=== PATIENT | male | born 1945 | race Caucasian/White ===

== ENCOUNTER → 2019-06-15 | Outpatient (CLI) | payer MEDICARE, OTHER, SELFPAY | PROVIDERS: Family Provider Physician Assistant Medical; Visit Provider Internal Medicine Hematology & Oncology | DX: C61 Malignant neoplasm of prostate (principal); Z79.818 Long term (current) use of other agents affecting estrogen receptors and estrogen levels; Z79.899 Other long term (current) drug therapy | CPT/HCPCS: 96372; 96402; 99214; J0897; J9202 ==

== ENCOUNTER 2019-09-23 14:20 | Outpatient (CLI) | payer MEDICARE, OTHER, SELFPAY ==
[2019-09-23] MEDS: lidocaine 1% INJ 20 mL INJECTION (16:00)
--- NOTE | 2019-09-23 16:05 | ONC FU_ITS ---
Dr. Corcoran follow up note Patient: Davey Vanegas Unit #: [id number]: 1945 Dicatated By: Brandy Corcoran M.D.Date of Visit:Sep 23, 2019 Onc Med Follow-up/Prog Note History of Present Illness: Mr. Davey Vanegas, 73 -year-old gentleman with history of prostate cancer diagnosed in September 2011 at that time his PSA level 7.5, and a biopsy showed 11/12 positive, Osito 4+5, 4+3, 3+ 4-marcela 3+3, all large volume CT scan of abdomen pelvis and a bone scan done at that time were negative for metastatic disease patient was started on LHRH agonist plus radiation therapy which he completed in March 2012. With that his PSA improved and become undetectable. Thereafter, he did very well until in August 2015 on his routine/follow-up lab showed PSA increased to 0.24, and gone up to 3.2 in February 2016. And further follow-up showed steady increase in PSA level for that he underwent TRUSP/biopsy in February 2016 which showed no obvious residual disease in the prostate and follow-up CT scan of abdomen pelvis showed no evidence of metastatic disease. At that time it was decided to continue to monitor with PSA level and on 01/29/2017 his PSA gone up to 28.3 from 20.9 earlier. Mr Vanegas's PSA in May 2017 = 36.4; June 2017 = 38.5 and on 08/26/2017 it was 40. He did have restaging imaging with a CT scan of abdomen pelvis done on 08/21/2017. The CT showed interval slight enlargement right inguinal and retroperitoneal lymph nodes. Bone scan done on 08/21/2017 showed new foci of abnormal bone scan activity of sternal body and left eighth rib. treatment options were discussed with him and Mr Hiren have opted to treat with Zoladex every 3 months along with Xgeva for bone mets and Casodex daily, Casodex was later discontinued because of severe hot flashes patient did develop back pain for which he went to [place] [facility] where his pain was diagnosed to be due to neuropathy and treated with a nerve ablation. tolerating Zoladex/Xgeva well Follow-up CT scan of abdomen pelvis and bone scan done on 06/11/2019 showed decreased previous retroperitoneal and right inguinal lymph nodes no enlarged lymph nodes on current exam. Suspicious for progressive blastic bony metastatic disease involving T12 vertebral body and right femoral head since 08/21/2017 but bone scan done on same day showed no evidence of disease progression, the minimal residual focus of increased activity involving the mid sternal body slightly to the left of midline, is considerably decreased from 08/21/2017 and similar to 1 done in 09/08/2018. No other area abnormality seen. On 06/11/2019 His PSA is 0.16 Came for follow-up, denies any specific complaints, no fever no chills no nausea or vomiting no diarrhea constipation, no new bony pains. No dysuria or hematochezia occasionally hot flashes otherwise tolerating Zoladex/Xgeva every 3 months, well Medications: Acetaminophen 2 Tablet (of 325 mg) Oral PRN, AmLODIPine Besylate 1 (10 mg) Tablet Oral daily, Aspirin Adult 1 Tablet (of 325 mg) Oral daily, Atenolol 1 (25 mg) Tablet Oral daily, Equate Vision Formula Vitamin 1 Tablet daily, Geritol 1 Capsule daily, GlipiZIDE 1 (10 mg) Tablet Oral b.i.d., Imodium A-D 1 Tablet (of 2 mg) Oral daily PRN, Losartan Potassium-HCTZ 1 (100-25 mg) Tablet Oral daily, Lovastatin 1 (40 mg) Tablet Oral daily, Metformin (500 mg) Tablet Oral Take as Directed, Metoprolol Tartrate 1 (100 mg) Tablet Oral daily, Omeprazole 1 Tablet (of 40 mg) Oral daily, Pepcid 1 Tablet (of 20 mg) Oral daily, Tamsulosin HCl 1 (0.4 mg) Capsule Oral b.i.d., twinlab super enzyme caps 1 Tablet daily PRN, Vitamin C 1 (1000 mg) Tablet Oral daily Allergies: Cipro Review of Systems: Review of Systems is not available for this patient. Vital Signs: Performed on Sep 23, 2019 15:42 Height - 72.00 in Weight - 210.8 lbs (LOW) BSA - 2.18 sq.m BMI - 28.59 Temperature - 97.9 F (LOW) Pulse - 64 /min Respiration - 18 /min BP - 156/67 mm(hg) (HIGH) O2 Sat - 96 % Pain - 0 Performance Status: 0 - Fully active, able to carry on all predisease activities without restrictions. (ECOG) Physical Examination: ENMT - Sinuses are nontender. No oral exudates, ulcers, masses, thrush or mucositis. Oropharynx clear. Tongue normal, Respiratory - Lungs are clear to auscultation , heart ,regular rate and rhythm, Extremities - no edema. Lab/Imaging: Test performed on Jun 11, 2019 09:45 BUN 17 mg/dL Creatinine 0.7 mg/dL Cr Clearance (Est) 127.0500 mL/min PSA 0.16 ng/mL Impression: History of prostate cancer High risk/high-volume stage IIB (T1c N0 M0) diagnosed in 2011 status post concurrent LHRH agonist (Zoladex ) plus radiation therapy followed by LHRH agonist for year. With excellent response, confirmed with undetectable PSA. Now steady increase in PSA level since August 2015, prostate biopsy done in February [address] scan of abdomen pelvis all were negative for recurrence of disease. Last PSA in April 2017 was 28.3. PSA checked on 06/13/2017 is 36.40 and testosterone level to 298.[address] scan of abdomen pelvis done on 08/21/2017 showed interval slight enlargement right inguinal and retroperitoneal lymph nodes. Bone scan done on 08/21/2017 showed new foci of abnormal bone scan activity of sternal body and left eighth rib; no evidence of rib lesion on the rib radiographs. PSA checked on 08/21/2017 was 37.10. discussed with patient his CT scan of abdomen, pelvis and bone scan findings and his lab workup. The labs showed CBC within normal limits CMP within normal limits and PSA elevated at 37.10 but stable since 06/13/2017. with stable disease/mild progression as per CT scan and bone scan. Patient opted for treatment. recommended Zoladex 10.8 mg subcutaneous every 3 months and xgeva 120 mg every 3 months along with bicalutamide 50 mg daily. Casodex discontinued on 06/09/2018 Plan: Discussed with patient regarding his labs PSA 0.10 compared to 0.16 on 06/11/2019. Clinically, patient is doing well with no signs symptoms suggestive of recurrence of disease. Tolerating Xgeva/Zoladex well. We'll proceed with next 3 monthly dose of Zoladex and Xgeva today and then he will return to clinic in 3 months with PSA and CMP and with follow-up CT PET scan to assess disease status and response to the treatment. Signed By: Brandy Corcoran M.D. <<Signature on File>>
[2019-09-23] MEDS: goserelin acetate 10.8 mg Implant IM (16:14)
[2019-09-23] MEDS: denosumab 120 mg SDV SUBCUT (16:15)
== END 2019-09-23 14:21 | disposition home or self-care (01) ==
LOC: ONCMED 14:21
PROVIDERS: Family Provider Physician Assistant Medical; PCP Physician Assistant Medical; Visit Provider Internal Medicine Hematology & Oncology
DX: C61 Malignant neoplasm of prostate (principal); C79.51 Secondary malignant neoplasm of bone; N52.9 Male erectile dysfunction, unspecified; Z79.818 Long term (current) use of other agents affecting estrogen receptors and estrogen levels; Z79.899 Other long term (current) drug therapy; Z92.3 Personal history of irradiation; Z92.21 Personal history of antineoplastic chemotherapy
CPT/HCPCS: 84153; 96372; 96402; G0463; J0897; J2001; J9202

== ENCOUNTER 2019-12-30 14:24 | Outpatient (CLI) | payer MEDICARE, OTHER, SELFPAY ==
[2019-12-30 16:20] LABS: Prostate Specific Antigen 0.073 ng/mL (0-4)
[2019-12-30 16:34] LABS: Alanine Aminotransferase 25 U/L (0-41); Albumin Level 4.3 g/dL (3.5-5.2); Alkaline Phosphatase 83 IU/L (40-130); Anion Gap 18.9 (5-19); Aspartate Amino Transferase 19 U/L (0-40); Blood Urea Nitrogen 15 mg/dL (8-23); Calcium 9.4 mg/dL (8.5-10.5); Carbon Dioxide 23 mmol/L (22-29); Chloride 99 mmol/L (98-107); Globulin 2.5 g/dL (1.3-4.6); Glucose 280 mg/dL (65-115); Osmolality Calculated 290 mOsm/kg (285-295); Potassium 3.9 mmol/L (3.5-5.1); Sodium 137 mmol/L (136-145); Total Bilirubin 0.5 mg/dL (0.15-1.2); Total Protein 6.8 g/dL (6.6-8.7)
[2019-12-30] MEDS: lidocaine 1% INJ 20 mL INJECTION (16:53)
[2019-12-30] MEDS: denosumab 120 mg SDV SUBCUT (17:01)
[2019-12-30] MEDS: goserelin acetate 10.8 mg Implant IM (17:04)
--- NOTE | 2019-12-30 17:23 | ONC FU_ITS ---
Dr. Corcoran follow up note Patient: Davey Vanegas Unit #: [id number]: [id number] Dicatated By: Brandy Corcoran M.D.Date of Visit:Dec 30, 2019 Onc Med Follow-up/Prog Note History of Present Illness: Mr. Davey Vanegas, 74 -year-old gentleman with history of prostate cancer diagnosed in September 2011 at that time his PSA level 7.5, and a biopsy showed 11/12 positive, Osito 4+5, 4+3, 3+ 4-marcela 3+3, all large volume CT scan of abdomen pelvis and a bone scan done at that time were negative for metastatic disease patient was started on LHRH agonist plus radiation therapy which he completed in March 2012. With that his PSA improved and become undetectable. Thereafter, he did very well until in August 2015 on his routine/follow-up lab showed PSA increased to 0.24, and gone up to 3.2 in February 2016. And further follow-up showed steady increase in PSA level for that he underwent TRUSP/biopsy in February 2016 which showed no obvious residual disease in the prostate and follow-up CT scan of abdomen pelvis showed no evidence of metastatic disease. At that time it was decided to continue to monitor with PSA level and on 01/29/2017 his PSA gone up to 28.3 from 20.9 earlier. Mr Vanegas's PSA in May 2017 = 36.4; June 2017 = 38.5 and on 08/26/2017 it was 40. He did have restaging imaging with a CT scan of abdomen pelvis done on 08/21/2017. The CT showed interval slight enlargement right inguinal and retroperitoneal lymph nodes. Bone scan done on 08/21/2017 showed new foci of abnormal bone scan activity of sternal body and left eighth rib. treatment options were discussed with him and Mr Hiren have opted to treat with Zoladex every 3 months along with Xgeva for bone mets and Casodex daily, Casodex was later discontinued because of severe hot flashes patient did develop back pain for which he went to [place] [facility] where his pain was diagnosed to be due to neuropathy and treated with a nerve ablation. tolerating Zoladex/Xgeva well Follow-up CT scan of abdomen pelvis and bone scan done on 06/11/2019 showed decreased previous retroperitoneal and right inguinal lymph nodes no enlarged lymph nodes on current exam. Suspicious for progressive blastic bony metastatic disease involving T12 vertebral body and right femoral head since 08/21/2017 but bone scan done on same day showed no evidence of disease progression, the minimal residual focus of increased activity involving the mid sternal body slightly to the left of midline, is considerably decreased from 08/21/2017 and similar to 1 done in 09/08/2018. No other area abnormality seen. On 06/11/2019 His PSA is 0.16 oFollow-up CT PET scan done on December 19, 2019 showed FDG negative dense sclerotic osseous lesion in T12 vertebral body. Other lesions in the sternum, T8-9, right iliac, left iliac are FDG negative to. No evidence of pelvic lymphadenopathy. Came for follow-up, denies any specific complaints, no fever chills, no nausea or vomiting, no diarrhea or constipation, appetite is good, tolerating 3 monthly Zoladex and Xgeva well but with expected side effects like off and on hot flashes. Medications: Acetaminophen 2 Tablet (of 325 mg) Oral PRN, AmLODIPine Besylate 1 (10 mg) Tablet Oral daily, Aspirin Adult 1 Tablet (of 325 mg) Oral daily, Atenolol 1 (25 mg) Tablet Oral daily, Equate Vision Formula Vitamin 1 Tablet daily, Geritol 1 Capsule daily, GlipiZIDE 1 (10 mg) Tablet Oral b.i.d., Imodium A-D 1 Tablet (of 2 mg) Oral daily PRN, Losartan Potassium-HCTZ 1 (100-25 mg) Tablet Oral daily, Lovastatin 1 (40 mg) Tablet Oral daily, Metformin (500 mg) Tablet Oral Take as Directed, Metoprolol Tartrate 1 (100 mg) Tablet Oral daily, Omeprazole 1 Tablet (of 40 mg) Oral daily, Pepcid 1 Tablet (of 20 mg) Oral daily, Tamsulosin HCl 1 (0.4 mg) Capsule Oral b.i.d., twinlab super enzyme caps 1 Tablet daily PRN, Vitamin C 1 (1000 mg) Tablet Oral daily Allergies: Cipro Review of Systems: Review of Systems is not available for this patient. Vital Signs: Performed on Dec 30, 2019 16:29 Height - 72.00 in Weight - 209.6 lbs (LOW) BSA - 2.17 sq.m BMI - 28.43 Temperature - 97.1 F (LOW) Pulse - 71 /min Respiration - 19 /min BP - 155/68 mm(hg) (HIGH) O2 Sat - 95 % (LOW) Pain - 0 Performance Status: 0 - Fully active, able to carry on all predisease activities without restrictions. (ECOG) Physical Examination: ENMT - No mouth sores, no thrush, no jaundice, Respiratory - Lungs are clear, Cardiovascular - Regular rate and rhythm of heart, Abdomen - Soft, bowel sounds present, Extremities - No visible edema. Lab/Imaging: Test performed on Sep 23, 2019 14:38 PSA 0.10 ng/mL Impression: History of prostate cancer High risk/high-volume stage IIB (T1c N0 M0) diagnosed in 2011 status post concurrent LHRH agonist (Zoladex ) plus radiation therapy followed by LHRH agonist for year. With excellent response, confirmed with undetectable PSA. Now steady increase in PSA level since August 2015, prostate biopsy done in February [address] scan of abdomen pelvis all were negative for recurrence of disease. Last PSA in April 2017 was 28.3. PSA checked on 06/13/2017 is 36.40 and testosterone level to 298.[address] scan of abdomen pelvis done on 08/21/2017 showed interval slight enlargement right inguinal and retroperitoneal lymph nodes. Bone scan done on 08/21/2017 showed new foci of abnormal bone scan activity of sternal body and left eighth rib; no evidence of rib lesion on the rib radiographs. PSA checked on 08/21/2017 was 37.10. discussed with patient his CT scan of abdomen, pelvis and bone scan findings and his lab workup. The labs showed CBC within normal limits CMP within normal limits and PSA elevated at 37.10 but stable since 06/13/2017. with stable disease/mild progression as per CT scan and bone scan. Patient opted for treatment. recommended Zoladex 10.8 mg subcutaneous every 3 months and xgeva 120 mg every 3 months along with bicalutamide 50 mg daily. Casodex discontinued on 06/09/2018 Plan: Discussed with patient regarding his labs PSA 0.073, CT PET scan done on December 19, 2019 shows no sign of active disease FDG negative osseous metastatic disease and no evidence of pelvic lymphadenopathy. Clinically, patient doing well with no signs symptoms suggestive of disease progression his follow-up labs shows PSA sub-0 and stable and follow-up CT PET scan shows no sign of active disease. Patient is tolerating maintenance dose with Zoladex well but with expected side effects e.g. occasional hot flashes. We will proceed with next 3 monthly dose of Zoladex and Xgeva today and then he will return to clinic in 3 months with a PSA and for Zoladex and Xgeva. Signed By: Brandy Corcoran M.D. <<Signature on File>>
== END 2019-12-30 14:25 | disposition home or self-care (01) ==
LOC: ONCMED 14:27
PROVIDERS: PCP Physician Assistant Medical; Visit Provider Internal Medicine Hematology & Oncology
DX: C61 Malignant neoplasm of prostate (principal); C79.51 Secondary malignant neoplasm of bone; N52.9 Male erectile dysfunction, unspecified; Z79.818 Long term (current) use of other agents affecting estrogen receptors and estrogen levels; Z79.899 Other long term (current) drug therapy
CPT/HCPCS: 80053; 84153; 96372; 96402; 99214; J0897; J2001; J9202

== ENCOUNTER 2020-03-31 13:50 | Outpatient (CLI) | payer MEDICARE, OTHER, SELFPAY ==
[2020-03-31 15:01] LABS: Prostate Specific Antigen 0.052 ng/mL (0-4)
--- NOTE | 2020-03-31 15:46 | ONC FU_ITS ---
Dr. Corcoran follow up note Patient: Davey Vanegas Unit #: [id number]: [id number] Dicatated By: Brandy Corcoran M.D.Date of Visit:Mar 31, 2020 Onc Med Follow-up/Prog Note History of Present Illness: Mr. Davey Vanegas, 74 -year-old gentleman with history of prostate cancer diagnosed in September 2011 at that time his PSA level 7.5, and a biopsy showed 11/12 positive, Osito 4+5, 4+3, 3+ 4-marcela 3+3, all large volume CT scan of abdomen pelvis and a bone scan done at that time were negative for metastatic disease patient was started on LHRH agonist plus radiation therapy which he completed in March 2012. With that his PSA improved and become undetectable. Thereafter, he did very well until in August 2015 on his routine/follow-up lab showed PSA increased to 0.24, and gone up to 3.2 in February 2016. And further follow-up showed steady increase in PSA level for that he underwent TRUSP/biopsy in February 2016 which showed no obvious residual disease in the prostate and follow-up CT scan of abdomen pelvis showed no evidence of metastatic disease. At that time it was decided to continue to monitor with PSA level and on 01/29/2017 his PSA gone up to 28.3 from 20.9 earlier. Mr Vanegas's PSA in May 2017 = 36.4; June 2017 = 38.5 and on 08/26/2017 it was 40. He did have restaging imaging with a CT scan of abdomen pelvis done on 08/21/2017. The CT showed interval slight enlargement right inguinal and retroperitoneal lymph nodes. Bone scan done on 08/21/2017 showed new foci of abnormal bone scan activity of sternal body and left eighth rib. treatment options were discussed with him and Mr Hiren have opted to treat with Zoladex every 3 months along with Xgeva for bone mets and Casodex daily, Casodex was later discontinued because of severe hot flashes patient did develop back pain for which he went to [place] [facility] where his pain was diagnosed to be due to neuropathy and treated with a nerve ablation. tolerating Zoladex/Xgeva well Follow-up CT scan of abdomen pelvis and bone scan done on 06/11/2019 showed decreased previous retroperitoneal and right inguinal lymph nodes no enlarged lymph nodes on current exam. Suspicious for progressive blastic bony metastatic disease involving T12 vertebral body and right femoral head since 08/21/2017 but bone scan done on same day showed no evidence of disease progression, the minimal residual focus of increased activity involving the mid sternal body slightly to the left of midline, is considerably decreased from 08/21/2017 and similar to 1 done in 09/08/2018. No other area abnormality seen. On 06/11/2019 His PSA is 0.16 oFollow-up CT PET scan done on December 19, 2019 showed FDG negative dense sclerotic osseous lesion in T12 vertebral body. Other lesions in the sternum, T8-9, right iliac, left iliac are FDG negative to. No evidence of pelvic lymphadenopathy. Came for follow-up, denies any specific complaints, no fever chills, no nausea or vomiting, no diarrhea or constipation, occasionally hot flashes otherwise tolerating Zoladex/Xgeva every 3-month well Medications: Acetaminophen 2 Tablet (of 325 mg) Oral PRN, AmLODIPine Besylate 1 (10 mg) Tablet Oral daily, Aspirin Adult 1 Tablet (of 325 mg) Oral daily, Atenolol 1 (25 mg) Tablet Oral daily, Equate Vision Formula Vitamin 1 Tablet daily, Geritol 1 Capsule daily, GlipiZIDE 1 (10 mg) Tablet Oral b.i.d., Imodium A-D 1 Tablet (of 2 mg) Oral daily PRN, Losartan Potassium-HCTZ 1 (100-25 mg) Tablet Oral daily, Lovastatin 1 (40 mg) Tablet Oral daily, Metformin (500 mg) Tablet Oral Take as Directed, Metoprolol Tartrate 1 (100 mg) Tablet Oral daily, Omeprazole 1 Tablet (of 40 mg) Oral daily, Pepcid 1 Tablet (of 20 mg) Oral daily, Tamsulosin HCl 1 (0.4 mg) Capsule Oral b.i.d., twinlab super enzyme caps 1 Tablet daily PRN, Vitamin C 1 (1000 mg) Tablet Oral daily Allergies: Cipro Review of Systems: Review of Systems is not available for this patient. Vital Signs: Performed on Mar 31, 2020 15:16 Height - 72.00 in Weight - 211.0 lbs (HIGH) BSA - 2.18 sq.m BMI - 28.62 Temperature - 98.6 F Pulse - 91 /min Respiration - 24 /min BP - 186/80 mm(hg) (HIGH) O2 Sat - 95 % (LOW) Pain - 0 Performance Status: 0 - Fully active, able to carry on all predisease activities without restrictions. (ECOG) Physical Examination: ENMT - No mouth sores, no thrush, no Jaundice, Respiratory - Lungs are clear to auscultation, Cardiovascular - Regular rate and rhythm of heart, Abdomen - Soft, bowel sounds present, Extremities - No visible edema. Lab/Imaging: Test performed on Dec 30, 2019 14:35 Sodium 137 mmol/L Potassium 3.9 mmol/L Chloride 99 mmol/L CO2 23 mmol/L Anion Gap 18.9 BUN 15 mg/dL Creatinine 0.8 mg/dL Cr Clearance (Est) 110.5900 mL/min Glucose 280 mg/dL Calcium 9.4 mg/dL Protein, Total 6.8 g/dL Albumin 4.3 g/dL Globulin 2.5 g/dL Bilirubin, Total 0.5 mg/dL ALT (SGPT) 25 U/L AST (SGOT) 19 U/L Alkaline Phosphatase 83 IU/L PSA 0.073 ng/mL Impression: History of prostate cancer High risk/high-volume stage IIB (T1c N0 M0) diagnosed in 2011 status post concurrent LHRH agonist (Zoladex ) plus radiation therapy followed by LHRH agonist for year. With excellent response, confirmed with undetectable PSA. Now steady increase in PSA level since August 2015, prostate biopsy done in February [address] scan of abdomen pelvis all were negative for recurrence of disease. Last PSA in April 2017 was 28.3. PSA checked on 06/13/2017 is 36.40 and testosterone level to 298.[address] scan of abdomen pelvis done on 08/21/2017 showed interval slight enlargement right inguinal and retroperitoneal lymph nodes. Bone scan done on 08/21/2017 showed new foci of abnormal bone scan activity of sternal body and left eighth rib; no evidence of rib lesion on the rib radiographs. PSA checked on 08/21/2017 was 37.10. discussed with patient his CT scan of abdomen, pelvis and bone scan findings and his lab workup. The labs showed CBC within normal limits CMP within normal limits and PSA elevated at 37.10 but stable since 06/13/2017. with stable disease/mild progression as per CT scan and bone scan. Patient opted for treatment. recommended Zoladex 10.8 mg subcutaneous every 3 months and xgeva 120 mg every 3 months along with bicalutamide 50 mg daily. Casodex discontinued on 06/09/2018 Plan: Discussed with patient regarding his labs his PSA is 0.052 compared to 0.073 on December 30, 2019 Clinically, patient doing well with no signs symptom suggestive of disease progression his follow-up PSA continues to improvement. We will proceed with his next 3 monthly dose of Zoladex/Xgeva today then he will return to clinic in 3 months with a PSA. Signed By: Brandy Corcoran M.D. <<Signature on File>>
[2020-03-31] MEDS: lidocaine 1% INJ 20 mL INJECTION (15:47)
[2020-03-31] MEDS: denosumab 120 mg SDV SUBCUT (15:57)
[2020-03-31] MEDS: goserelin acetate 10.8 mg Implant IM (15:58)
== END 2020-03-31 13:51 | disposition home or self-care (01) ==
LOC: ONCMED 13:53
PROVIDERS: PCP Physician Assistant Medical; Visit Provider Internal Medicine Hematology & Oncology
DX: C61 Malignant neoplasm of prostate (principal); C79.51 Secondary malignant neoplasm of bone; Z79.818 Long term (current) use of other agents affecting estrogen receptors and estrogen levels; Z79.899 Other long term (current) drug therapy; Z92.3 Personal history of irradiation
CPT/HCPCS: 84153; 96372; 96402; 99214; J0897; J9202

== ENCOUNTER 2020-07-04 13:38 | Outpatient (CLI) | payer MEDICARE, OTHER, SELFPAY ==
[2020-07-04 14:57] LABS: Prostate Specific Antigen 0.036 ng/mL (0-4)
[2020-07-04] MEDS: lidocaine 1% INJ 20 mL INJECTION (15:45)
--- NOTE | 2020-07-04 15:48 | ONC FU_ITS ---
Dr. Corcoran follow up note Patient: Davey Vanegas Unit #: [id number]: 1945 Dicatated By: Brandy Corcoran M.D.Date of Visit:Jul 04, 2020 Onc Med Follow-up/Prog Note History of Present Illness: Mr. Davey Vanegas, 74 -year-old gentleman with history of prostate cancer diagnosed in September 2011 at that time his PSA level 7.5, and a biopsy showed 11/12 positive, Osito 4+5, 4+3, 3+ 4-marcela 3+3, all large volume CT scan of abdomen pelvis and a bone scan done at that time were negative for metastatic disease patient was started on LHRH agonist plus radiation therapy which he completed in March 2012. With that his PSA improved and become undetectable. Thereafter, he did very well until in August 2015 on his routine/follow-up lab showed PSA increased to 0.24, and gone up to 3.2 in February 2016. And further follow-up showed steady increase in PSA level for that he underwent TRUSP/biopsy in February 2016 which showed no obvious residual disease in the prostate and follow-up CT scan of abdomen pelvis showed no evidence of metastatic disease. At that time it was decided to continue to monitor with PSA level and on 01/29/2017 his PSA gone up to 28.3 from 20.9 earlier. Mr Vanegas's PSA in May 2017 = 36.4; June 2017 = 38.5 and on 08/26/2017 it was 40. He did have restaging imaging with a CT scan of abdomen pelvis done on 08/21/2017. The CT showed interval slight enlargement right inguinal and retroperitoneal lymph nodes. Bone scan done on 08/21/2017 showed new foci of abnormal bone scan activity of sternal body and left eighth rib. treatment options were discussed with him and Mr Hiren have opted to treat with Zoladex every 3 months along with Xgeva for bone mets and Casodex daily, Casodex was later discontinued because of severe hot flashes patient did develop back pain for which he went to [facility] where his pain was diagnosed to be due to neuropathy and treated with a nerve ablation. tolerating Zoladex/Xgeva well Follow-up CT scan of abdomen pelvis and bone scan done on 06/11/2019 showed decreased previous retroperitoneal and right inguinal lymph nodes no enlarged lymph nodes on current exam. Suspicious for progressive blastic bony metastatic disease involving T12 vertebral body and right femoral head since 08/21/2017 but bone scan done on same day showed no evidence of disease progression, the minimal residual focus of increased activity involving the mid sternal body slightly to the left of midline, is considerably decreased from 08/21/2017 and similar to 1 done in 09/08/2018. No other area abnormality seen. On 06/11/2019 His PSA is 0.16 oFollow-up CT PET scan done on December 19, 2019 showed FDG negative dense sclerotic osseous lesion in T12 vertebral body. Other lesions in the sternum, T8-9, right iliac, left iliac are FDG negative to. No evidence of pelvic lymphadenopathy. Came for follow-up, denies any specific complaints, except off-and-on hot flashes otherwise no fever chills, no nausea or vomiting, no diarrhea or constipation. Tolerating Xgeva/Zoladex well otherwise Medications: Acetaminophen 2 Tablet (of 325 mg) Oral PRN, AmLODIPine Besylate 1 (10 mg) Tablet Oral daily, Aspirin Adult 1 Tablet (of 325 mg) Oral daily, Atenolol 1 (25 mg) Tablet Oral daily, Equate Vision Formula Vitamin 1 Tablet daily, Geritol 1 Capsule daily, GlipiZIDE 1 (10 mg) Tablet Oral b.i.d., Imodium A-D 1 Tablet (of 2 mg) Oral daily PRN, Losartan Potassium-HCTZ 1 (100-25 mg) Tablet Oral daily, Lovastatin 1 (40 mg) Tablet Oral daily, Metformin (500 mg) Tablet Oral Take as Directed, Metoprolol Tartrate 1 (100 mg) Tablet Oral daily, Omeprazole 1 Tablet (of 40 mg) Oral daily, Pepcid 1 Tablet (of 20 mg) Oral daily, Tamsulosin HCl 1 (0.4 mg) Capsule Oral b.i.d., twinlab super enzyme caps 1 Tablet daily PRN, Vitamin C 1 (1000 mg) Tablet Oral daily Allergies: Cipro Review of Systems: Review of Systems is not available for this patient. Vital Signs: Performed on Jul 04, 2020 15:23 Height - 72.00 in Weight - 211.6 lbs (HIGH) BSA - 2.18 sq.m BMI - 28.70 Temperature - 98.7 F Pulse - 82 /min Respiration - 18 /min BP - 192/80 mm(hg) (HIGH) O2 Sat - 98 % Pain - 0 Performance Status: 0 - Fully active, able to carry on all predisease activities without restrictions. (ECOG) Physical Examination: ENMT - No mouth sores, no thrush, no jaundice, Respiratory - Lungs are clear to auscultation, Cardiovascular - Regular rate and rhythm of heart, Abdomen - Soft, bowel sounds present, Extremities - No visible edema or rash. Lab/Imaging: Test performed on Mar 31, 2020 14:02 PSA 0.052 ng/mL Impression: History of prostate cancer High risk/high-volume stage IIB (T1c N0 M0) diagnosed in 2011 status post concurrent LHRH agonist (Zoladex ) plus radiation therapy followed by LHRH agonist for year. With excellent response, confirmed with undetectable PSA. Now steady increase in PSA level since August 2015, prostate biopsy done in February [address] scan of abdomen pelvis all were negative for recurrence of disease. Last PSA in April 2017 was 28.3. PSA checked on 06/13/2017 is 36.40 and testosterone level to 298.[address] scan of abdomen pelvis done on 08/21/2017 showed interval slight enlargement right inguinal and retroperitoneal lymph nodes. Bone scan done on 08/21/2017 showed new foci of abnormal bone scan activity of sternal body and left eighth rib; no evidence of rib lesion on the rib radiographs. PSA checked on 08/21/2017 was 37.10. discussed with patient his CT scan of abdomen, pelvis and bone scan findings and his lab workup. The labs showed CBC within normal limits CMP within normal limits and PSA elevated at 37.10 but stable since 06/13/2017. with stable disease/mild progression as per CT scan and bone scan. Patient opted for treatment. recommended Zoladex 10.8 mg subcutaneous every 3 months and xgeva 120 mg every 3 months along with bicalutamide 50 mg daily. Casodex discontinued on 06/09/2018 Plan: Discussed with patient regarding his labs his PSA is 0.036 compared to 0.052 on March 31, 2020 Clinically, patient doing well with no new signs symptom suggestive of disease progression and follow-up PSA shows continued improvement. Tolerating Zoladex/Xgeva well, will proceed with next 3 monthly dose of Zoladex and Xgeva and then return to clinic in 3 months with PSA and for maintenance dose of Zoladex/Xgeva Signed By: Brandy Corcoran M.D. <<Signature on File>>
[2020-07-04] MEDS: denosumab 120 mg SDV SUBCUT (15:53)
[2020-07-04] MEDS: goserelin acetate 10.8 mg Implant IM (16:01)
== END 2020-07-04 13:39 | disposition home or self-care (01) ==
LOC: ONCMED 13:40
PROVIDERS: PCP Physician Assistant Medical; Visit Provider Internal Medicine Hematology & Oncology
DX: C79.51 Secondary malignant neoplasm of bone (principal); Z85.46 Personal history of malignant neoplasm of prostate; N52.9 Male erectile dysfunction, unspecified; Z92.3 Personal history of irradiation; Z79.818 Long term (current) use of other agents affecting estrogen receptors and estrogen levels; Z79.899 Other long term (current) drug therapy
CPT/HCPCS: 36415; 84153; 96372; 96402; 99214; J0897; J9202

== ENCOUNTER → 2020-09-08 14:37 | Outpatient (BNVA) | payer MEDICARE, OTHER, SELFPAY | PROVIDERS: PCP Physician Assistant Medical; Referring Provider Physician Assistant Medical; Visit Provider Internal Medicine | DX: C61 Malignant neoplasm of prostate (principal); E11.40 Type 2 diabetes mellitus with diabetic neuropathy, unspecified; E11.65 Type 2 diabetes mellitus with hyperglycemia; I63.9 Cerebral infarction, unspecified | CPT/HCPCS: 99205 ==

== ENCOUNTER 2020-10-05 13:32 | Outpatient (CLI) | payer MEDICARE, OTHER, SELFPAY ==
[2020-10-05 14:44] LABS: Prostate Specific Antigen 0.037 ng/mL (0-4)
--- NOTE | 2020-10-05 15:48 | ONC FU_ITS ---
Dr. Corcoran follow up note Patient: Davey Vanegas Unit #: [id number]: 1945 Dicatated By: Brandy Corcoran M.D.Date of Visit:Oct 05, 2020 Onc Med Follow-up/Prog Note History of Present Illness: Mr. Davey Vanegas, 74 -year-old gentleman with history of prostate cancer diagnosed in September 2011 at that time his PSA level 7.5, and a biopsy showed 11/12 positive, Osito 4+5, 4+3, 3+ 4-marcela 3+3, all large volume CT scan of abdomen pelvis and a bone scan done at that time were negative for metastatic disease patient was started on LHRH agonist plus radiation therapy which he completed in March 2012. With that his PSA improved and become undetectable. Thereafter, he did very well until in August 2015 on his routine/follow-up lab showed PSA increased to 0.24, and gone up to 3.2 in February 2016. And further follow-up showed steady increase in PSA level for that he underwent TRUSP/biopsy in February 2016 which showed no obvious residual disease in the prostate and follow-up CT scan of abdomen pelvis showed no evidence of metastatic disease. At that time it was decided to continue to monitor with PSA level and on 01/29/2017 his PSA gone up to 28.3 from 20.9 earlier. Mr Vanegas's PSA in May 2017 = 36.4; June 2017 = 38.5 and on 08/26/2017 it was 40. He did have restaging imaging with a CT scan of abdomen pelvis done on 08/21/2017. The CT showed interval slight enlargement right inguinal and retroperitoneal lymph nodes. Bone scan done on 08/21/2017 showed new foci of abnormal bone scan activity of sternal body and left eighth rib. treatment options were discussed with him and Mr Hiren have opted to treat with Zoladex every 3 months along with Xgeva for bone mets and Casodex daily, Casodex was later discontinued because of severe hot flashes patient did develop back pain for which he went to [place] [facility] where his pain was diagnosed to be due to neuropathy and treated with a nerve ablation. tolerating Zoladex/Xgeva well Follow-up CT scan of abdomen pelvis and bone scan done on 06/11/2019 showed decreased previous retroperitoneal and right inguinal lymph nodes no enlarged lymph nodes on current exam. Suspicious for progressive blastic bony metastatic disease involving T12 vertebral body and right femoral head since 08/21/2017 but bone scan done on same day showed no evidence of disease progression, the minimal residual focus of increased activity involving the mid sternal body slightly to the left of midline, is considerably decreased from 08/21/2017 and similar to 1 done in 09/08/2018. No other area abnormality seen. On 06/11/2019 His PSA is 0.16 oFollow-up CT PET scan done on December 19, 2019 showed FDG negative dense sclerotic osseous lesion in T12 vertebral body. Other lesions in the sternum, T8-9, right iliac, left iliac are FDG negative to. No evidence of pelvic lymphadenopathy. Came for follow-up, denies any specific complaints, no fever chills, no nausea or vomiting, no diarrhea constipation occasionally hot flashes otherwise. Tolerating Xgeva/Zoladex well Medications: Acetaminophen 2 Tablet (of 325 mg) Oral PRN, AmLODIPine Besylate 1 (10 mg) Tablet Oral daily, Aspirin Adult 1 Tablet (of 325 mg) Oral daily, Atenolol 1 (25 mg) Tablet Oral daily, Empagliflozin (10 mg) Tablet Oral daily, Equate Vision Formula Vitamin 1 Tablet daily, Geritol 1 Capsule daily, GlipiZIDE 1 (10 mg) Tablet Oral b.i.d., Imodium A-D 1 Tablet (of 2 mg) Oral daily PRN, Losartan Potassium-HCTZ 1 (100-25 mg) Tablet Oral daily, Lovastatin 1 (40 mg) Tablet Oral daily, Metformin (500 mg) Tablet Oral Take as Directed, Metoprolol Tartrate 1 (100 mg) Tablet Oral daily, Omeprazole 1 Tablet (of 40 mg) Oral daily, Pepcid 1 Tablet (of 20 mg) Oral daily, Tamsulosin HCl 1 (0.4 mg) Capsule Oral b.i.d., twinlab super enzyme caps 1 Tablet daily PRN, Victoza Subcutaneous, Vitamin C 1 (1000 mg) Tablet Oral daily Allergies: Cipro Review of Systems: Review of Systems is not available for this patient. Vital Signs: Vitals are not available for this patient. Performance Status: 0 - Fully active, able to carry on all predisease activities without restrictions. (ECOG) Physical Examination: ENMT - No mouth sores, no thrush, no jaundice, Respiratory - Lungs are clear to auscultation, Cardiovascular - Regular rate and rhythm of heart, Abdomen - Soft, bowel sounds present, Extremities - No visible edema. Lab/Imaging: Test performed on Jul 04, 2020 13:55 PSA 0.036 ng/mL Impression: History of prostate cancer High risk/high-volume stage IIB (T1c N0 M0) diagnosed in 2011 status post concurrent LHRH agonist (Zoladex ) plus radiation therapy followed by LHRH agonist for year. With excellent response, confirmed with undetectable PSA. Now steady increase in PSA level since August 2015, prostate biopsy done in February [address] scan of abdomen pelvis all were negative for recurrence of disease. Last PSA in April 2017 was 28.3. PSA checked on 06/13/2017 is 36.40 and testosterone level to 298.[address] scan of abdomen pelvis done on 08/21/2017 showed interval slight enlargement right inguinal and retroperitoneal lymph nodes. Bone scan done on 08/21/2017 showed new foci of abnormal bone scan activity of sternal body and left eighth rib; no evidence of rib lesion on the rib radiographs. PSA checked on 08/21/2017 was 37.10. discussed with patient his CT scan of abdomen, pelvis and bone scan findings and his lab workup. The labs showed CBC within normal limits CMP within normal limits and PSA elevated at 37.10 but stable since 06/13/2017. with stable disease/mild progression as per CT scan and bone scan. Patient opted for treatment. recommended Zoladex 10.8 mg subcutaneous every 3 months and xgeva 120 mg every 3 months along with bicalutamide 50 mg daily. Casodex discontinued on 06/09/2018 Plan: Discussed with patient regarding his labs PSA is 0.037 compared to 0.036 previously Clinically, patient doing well with no new signs symptom suggestive of recurrence of disease, tolerating 3 monthly Zoladex/Xgeva well but with expected side effect e.g. occasionally hot flashes. We will continue with same and proceed with the next 3 monthly dose of Zoladex/Xgeva today and then return to clinic in 3 months with PSA Signed By: Brandy Corcoran M.D. <<Signature on File>>
[2020-10-05] MEDS: lidocaine 1% INJ 20 mL INJECTION (16:05)
[2020-10-05] MEDS: goserelin acetate 10.8 mg Implant IM (16:10)
[2020-10-05] MEDS: denosumab 120 mg SDV SUBCUT (16:14)
== END 2020-10-05 13:33 | disposition home or self-care (01) ==
LOC: ONCMED 13:35
PROVIDERS: PCP Physician Assistant Medical; Visit Provider Internal Medicine Hematology & Oncology
DX: Z51.11 Encounter for antineoplastic chemotherapy (principal); C61 Malignant neoplasm of prostate; C79.51 Secondary malignant neoplasm of bone; N52.9 Male erectile dysfunction, unspecified; Z79.818 Long term (current) use of other agents affecting estrogen receptors and estrogen levels
CPT/HCPCS: 36415; 84153; 96372; 96402; 99215; J0897; J9202

== ENCOUNTER 2021-01-09 09:24 | Outpatient (CLI) | payer MEDICARE, OTHER, SELFPAY ==
[2021-01-09 11:16] LABS: Prostate Specific Antigen 0.026 ng/mL (0-4)
[2021-01-09] MEDS: lidocaine 1% INJ 20 mL INJECTION (12:15)
[2021-01-09] MEDS: denosumab 120 mg SDV SUBCUT (12:20)
[2021-01-09] MEDS: goserelin acetate 10.8 mg Implant SUBCUT (12:22)
--- NOTE | 2021-01-09 13:00 | ONC FU_ITS ---
Dr. Corcoran follow up note Patient: Davey Vanegas Unit #: [id number]: 1945 Dicatated By: Brandy Corcoran M.D.Date of Visit:Jan 09, 2021 Onc Med Follow-up/Prog Note History of Present Illness: Mr. Davey Vanegas, 75 -year-old gentleman with history of prostate cancer diagnosed in September 2011 at that time his PSA level 7.5, and a biopsy showed 11/12 positive, Osito 4+5, 4+3, 3+ 4-marcela 3+3, all large volume CT scan of abdomen pelvis and a bone scan done at that time were negative for metastatic disease patient was started on LHRH agonist plus radiation therapy which he completed in March 2012. With that his PSA improved and become undetectable. Thereafter, he did very well until in August 2015 on his routine/follow-up lab showed PSA increased to 0.24, and gone up to 3.2 in February 2016. And further follow-up showed steady increase in PSA level for that he underwent TRUSP/biopsy in February 2016 which showed no obvious residual disease in the prostate and follow-up CT scan of abdomen pelvis showed no evidence of metastatic disease. At that time it was decided to continue to monitor with PSA level and on 01/29/2017 his PSA gone up to 28.3 from 20.9 earlier. Mr Vanegas's PSA in May 2017 = 36.4; June 2017 = 38.5 and on 08/26/2017 it was 40. He did have restaging imaging with a CT scan of abdomen pelvis done on 08/21/2017. The CT showed interval slight enlargement right inguinal and retroperitoneal lymph nodes. Bone scan done on 08/21/2017 showed new foci of abnormal bone scan activity of sternal body and left eighth rib. treatment options were discussed with him and Mr Hiren have opted to treat with Zoladex every 3 months along with Xgeva for bone mets and Casodex daily, Casodex was later discontinued because of severe hot flashes patient did develop back pain for which he went to [place] [facility] where his pain was diagnosed to be due to neuropathy and treated with a nerve ablation. tolerating Zoladex/Xgeva well Follow-up CT scan of abdomen pelvis and bone scan done on 06/11/2019 showed decreased previous retroperitoneal and right inguinal lymph nodes no enlarged lymph nodes on current exam. Suspicious for progressive blastic bony metastatic disease involving T12 vertebral body and right femoral head since 08/21/2017 but bone scan done on same day showed no evidence of disease progression, the minimal residual focus of increased activity involving the mid sternal body slightly to the left of midline, is considerably decreased from 08/21/2017 and similar to 1 done in 09/08/2018. No other area abnormality seen. On 06/11/2019 His PSA is 0.16 oFollow-up CT PET scan done on December 19, 2019 showed FDG negative dense sclerotic osseous lesion in T12 vertebral body. Other lesions in the sternum, T8-9, right iliac, left iliac are FDG negative to. No evidence of pelvic lymphadenopathy. Came for follow-up, denies any specific complaints, no fever chills, no nausea or vomiting, no diarrhea or constipation, occasionally hot flashes otherwise tolerating Zoladex/Xgeva welll Medications: Acetaminophen 2 Tablet (of 325 mg) Oral PRN, AmLODIPine Besylate 1 (10 mg) Tablet Oral daily, Aspirin Adult 1 Tablet (of 325 mg) Oral daily, Atenolol 1 (25 mg) Tablet Oral daily, Empagliflozin (10 mg) Tablet Oral daily, Equate Vision Formula Vitamin 1 Tablet daily, Geritol 1 Capsule daily, GlipiZIDE 1 (10 mg) Tablet Oral b.i.d., Imodium A-D 1 Tablet (of 2 mg) Oral daily PRN, Losartan Potassium-HCTZ 1 (100-25 mg) Tablet Oral daily, Lovastatin 1 (40 mg) Tablet Oral daily, Metformin (500 mg) Tablet Oral Take as Directed, Metoprolol Tartrate 1 (100 mg) Tablet Oral daily, Omeprazole 1 Tablet (of 40 mg) Oral daily, Pepcid 1 Tablet (of 20 mg) Oral daily, Tamsulosin HCl 1 (0.4 mg) Capsule Oral b.i.d., twinlab super enzyme caps 1 Tablet daily PRN, Victoza Subcutaneous, Vitamin C 1 (1000 mg) Tablet Oral daily Allergies: Cipro Review of Systems: Review of Systems is not available for this patient. Vital Signs: Performed on Jan 09, 2021 11:43 Height - 72.00 in Weight - 199.6 lbs (LOW) BSA - 2.13 sq.m BMI - 27.07 Temperature - 96.8 F (LOW) Pulse - 71 /min Respiration - 18 /min BP - 158/73 mm(hg) (HIGH) O2 Sat - 96 % Pain - 0 Fatigue - 0 Performance Status: 0 - Fully active, able to carry on all predisease activities without restrictions. (ECOG) Physical Examination: ENMT - No mouth sores, no thrush, no jaundice, Respiratory - Lungs are clear to auscultation, Cardiovascular - Regular rate and rhythm of heart, Abdomen - Soft, bowel sounds present, Extremities - No visible edema. Lab/Imaging: Most recent lab results are not available for this patient. Impression: History of prostate cancer High risk/high-volume stage IIB (T1c N0 M0) diagnosed in 2011 status post concurrent LHRH agonist (Zoladex ) plus radiation therapy followed by LHRH agonist for year. With excellent response, confirmed with undetectable PSA. Now steady increase in PSA level since August 2015, prostate biopsy done in February [address] scan of abdomen pelvis all were negative for recurrence of disease. Last PSA in April 2017 was 28.3. PSA checked on 06/13/2017 is 36.40 and testosterone level to 298.[address] scan of abdomen pelvis done on 08/21/2017 showed interval slight enlargement right inguinal and retroperitoneal lymph nodes. Bone scan done on 08/21/2017 showed new foci of abnormal bone scan activity of sternal body and left eighth rib; no evidence of rib lesion on the rib radiographs. PSA checked on 08/21/2017 was 37.10. discussed with patient his CT scan of abdomen, pelvis and bone scan findings and his lab workup. The labs showed CBC within normal limits CMP within normal limits and PSA elevated at 37.10 but stable since 06/13/2017. with stable disease/mild progression as per CT scan and bone scan. Patient opted for treatment. recommended Zoladex 10.8 mg subcutaneous every 3 months and xgeva 120 mg every 3 months along with bicalutamide 50 mg daily. Casodex discontinued on 06/09/2018 Plan: Discussed with patient regarding his labs PSA is 0.026 compared to 0.037 previously Clinically, patient doing well with no new signs symptom suggestive of disease progression, his follow-up labs shows PSA continue to improve, patient tolerating 3 monthly Zoladex/Xgeva well but with expected side effect e.g. occasional hot flashes, We will proceed with his 3 monthly dose of Zoladex/Xgeva today then he will return to clinic in 3 months with PSA and follow-up CT scan of abdomen pelvis and bone scan to assess disease status if it shows no evidence of disease, may switch his Xgeva to every year and also discussed about Zoladex e.g. observation versus continue as long as tolerated versus every 4 to 6-month instead of 3 months to minimize related side effects. Signed By: Brandy Corcoran M.D. <<Signature on File>>
== END 2021-01-09 09:25 | disposition home or self-care (01) ==
LOC: ONCMED 09:26
PROVIDERS: PCP Physician Assistant Medical; Visit Provider Internal Medicine Hematology & Oncology
DX: Z51.11 Encounter for antineoplastic chemotherapy (principal); C61 Malignant neoplasm of prostate; Z79.811 Long term (current) use of aromatase inhibitors; Z92.3 Personal history of irradiation; N52.9 Male erectile dysfunction, unspecified; Z92.21 Personal history of antineoplastic chemotherapy
CPT/HCPCS: 36415; 84153; 96372; 96402; 99215; J0897; J9202

== ENCOUNTER 2021-03-27 08:04 | Outpatient (CLI) | payer MEDICARE, OTHER, SELFPAY ==
--- NOTE | 2021-03-27 08:13 | CT_ITS ---
WS: [id number] CT ABDOMEN AND PELVIS WITH CONTRAST HISTORY: HX OF PROSTATE CANCER; RESTAGING TECHNIQUE: Imaging performed of the abdomen and pelvis with IV contrast. Single phase imaging of the abdomen. Coronal and sagittal reformats are submitted. All CT scans at [facility] use at [facility] one of these dose optimization techniques: automated exposure control; mA and/or kV adjustment per patient size (includes targeted exams where dose is matched to clinical indication); or iterative re construction. IV CONTRAST: Omnipaque 300; 95 mL IV. Oral contrast: No DLP: 1763.1 mGy.cm COMPARISON: 06/11/2019 Lower thorax: Lung bases are clear. Normal size heart. Small hiatal hernia. Liver/biliary system: Too small to characterize hypodensity in the RIGHT lobe the liver. Otherwise ne gative. Normal portal vein. Gallbladder: Contracted gallbladder with stones. No adjacent inflammation. Pancreas: Normal size pancreas and pancreatic duct. No adjacent inflammation. Spleen: Normal size spleen with several granulomata. Adrenal glands: Normal. Right kidney: Slightly increased size of the low-attenuation 7 mm nodule in the inferior pole of the RIGHT kidney. There is a smaller adjacent cyst in the lower pole also. No obstruction. Left kidney: Cortical cyst in the upper pole is stable. Stable cyst lower pole. No obstruction of the kidney. Aorta: Mild atherosclerosis with no aneurysm. Lymphadenopathy: There are a few small retroperitoneal lymph nodes along the aorta and aortocaval loc ations but these have not increased in size and are stable. Free fluid: None. GI tract: Mild diffuse fecal retention. The appendix is visualized and extends superior to the liver tip. No appendicitis. No obstructive pattern of the GI tract. Abdominal wall: Unremarkable abdominal wall. No hernia. Pelvis: No free fluid. Urinary bladder is well distended. Prostate seed implants are noted causing ar tifact. Bones: Moderate spondylitic changes in the lumbar spine. Facet joint arthritis is most significant bi laterally at L4-5 and L5-S1. There are a few scattered sclerotic lesions within the bones of the pelv is and spine. Overall these have not progressed. No pathological fractures. There are additional scat tered sclerotic areas within a LEFT rib. CT/CT abdomen pelvis w con* [id number] IMPRESSION: 1. Cholelithiasis in a contracted gallbladder. 2. Indeterminate but slight increase in size of the low-attenuation mass in th e lower pole RIGHT kidney. Low-attenuation mass is 7 mm compared. Recommend dann al ultrasound follow-up. 3. No adenopathy or ascites. 4. Stable osteoblastic foci within the bones as described above. No progressio n or new osteoblastic lesions identified.
--- NOTE | 2021-03-27 08:13 | NM_ITS ---
WS: [id number] NUCLEAR MEDICINE WHOLE BODY BONE SCAN HISTORY: HX OF PROSTATE CA; RE-STAGING EVAL COMPARE TO LAST COMPARISON: 06/11/2019 TECHNIQUE: The patient was injected with 27.2 mCi of Technetium 99m HDP and serial whole-body scintig florentino have been performed with anterior and posterior images. Moderate RIGHT SC joint osteoarthritis. Moderate amount of increased uptake within the L4 vertebral b jazzy. Very similar to the prior study. The remaining spine and ribs are normal. There are no suspiciou s findings on today's imaging to suggest metastatic bone disease. Soft tissue uptake and renal uptake is normal. NM/NM bone scan whole body* [id number] IMPRESSION: No evidence for metastatic prostate bone disease.
[2021-03-27 09:04] LABS: Blood Urea Nitrogen 12 mg/dL (8-23)
[2021-03-27] MEDS: iohexol 300 mg/mL 100 mL Btl IV (09:32)
== END 2021-03-27 08:05 | disposition home or self-care (01) ==
PROVIDERS: PCP Physician Assistant Medical; Visit Provider Internal Medicine Hematology & Oncology
DX: C79.51 Secondary malignant neoplasm of bone (principal); C61 Malignant neoplasm of prostate; Z92.3 Personal history of irradiation; K80.80 Other cholelithiasis without obstruction
CPT/HCPCS: 36415; 74177; 78306; 82565; 84520; A9561

== ENCOUNTER 2021-04-03 12:24 | Outpatient (CLI) | payer MEDICARE, OTHER, SELFPAY ==
[2021-04-03 14:23] LABS: Prostate Specific Antigen 0.022 ng/mL (0-4)
[2021-04-03] MEDS: lidocaine 1% INJ 20 mL INJECTION (15:09)
[2021-04-03] MEDS: goserelin acetate 10.8 mg Implant SUBCUT (15:23)
--- NOTE | 2021-04-10 10:47 | ONC FU_ITS ---
Dr. Corcoran follow up note Patient: Davey Vanegas Unit #: [id number]: 1945 Dicatated By: Brandy Corcoran M.D.Date of Visit:Apr 03, 2021 Onc Med Follow-up/Prog Note History of Present Illness: Mr. Davey Vanegas, 75 -year-old gentleman with history of prostate cancer diagnosed in September 2011 at that time his PSA level 7.5, and a biopsy showed 11/12 positive, Osito 4+5, 4+3, 3+ 4-marcela 3+3, all large volume CT scan of abdomen pelvis and a bone scan done at that time were negative for metastatic disease patient was started on LHRH agonist plus radiation therapy which he completed in March 2012. With that his PSA improved and become undetectable. Thereafter, he did very well until in August 2015 on his routine/follow-up lab showed PSA increased to 0.24, and gone up to 3.2 in February 2016. And further follow-up showed steady increase in PSA level for that he underwent TRUSP/biopsy in February 2016 which showed no obvious residual disease in the prostate and follow-up CT scan of abdomen pelvis showed no evidence of metastatic disease. At that time it was decided to continue to monitor with PSA level and on 01/29/2017 his PSA gone up to 28.3 from 20.9 earlier. Mr Vanegas's PSA in May 2017 = 36.4; June 2017 = 38.5 and on 08/26/2017 it was 40. He did have restaging imaging with a CT scan of abdomen pelvis done on 08/21/2017. The CT showed interval slight enlargement right inguinal and retroperitoneal lymph nodes. Bone scan done on 08/21/2017 showed new foci of abnormal bone scan activity of sternal body and left eighth rib. treatment options were discussed with him and Mr Hiren have opted to treat with Zoladex every 3 months along with Xgeva for bone mets and Casodex daily, Casodex was later discontinued because of severe hot flashes patient did develop back pain for which he went to [place] [facility] where his pain was diagnosed to be due to neuropathy and treated with a nerve ablation. tolerating Zoladex/Xgeva well Follow-up CT scan of abdomen pelvis and bone scan done on 06/11/2019 showed decreased previous retroperitoneal and right inguinal lymph nodes no enlarged lymph nodes on current exam. Suspicious for progressive blastic bony metastatic disease involving T12 vertebral body and right femoral head since 08/21/2017 but bone scan done on same day showed no evidence of disease progression, the minimal residual focus of increased activity involving the mid sternal body slightly to the left of midline, is considerably decreased from 08/21/2017 and similar to 1 done in 09/08/2018. No other area abnormality seen. On 06/11/2019 His PSA is 0.16 oFollow-up CT PET scan done on December 19, 2019 showed FDG negative dense sclerotic osseous lesion in T12 vertebral body. Other lesions in the sternum, T8-9, right iliac, left iliac are FDG negative to. No evidence of pelvic lymphadenopathy. Bone scan done on March 27, 2021 shows no evidence of metastatic prostate cancer CT scan of abdomen pelvis done March 27, 2021 shows indeterminate but slight increase in size of low-attenuation mass in the lower pole right kidney no pelvic or abdominal lymphadenopathy noticed. Stable osteoblastic foci within the bone of the pelvis and spine. Came for follow-up, denies any specific complaints, no fever chills, no nausea or vomiting, no diarrhea constipation, no melena hematochezia no hemoptysis or hematemesis, no new bony pains, no dysuria or hematuria, tolerating 3 monthly Zoladex well otherwise Medications: Acetaminophen 2 Tablet (of 325 mg) Oral PRN, AmLODIPine Besylate 1 (10 mg) Tablet Oral daily, Aspirin Adult 1 Tablet (of 325 mg) Oral daily, Atenolol 1 (25 mg) Tablet Oral daily, Empagliflozin (10 mg) Tablet Oral daily, Equate Vision Formula Vitamin 1 Tablet daily, Geritol 1 Capsule daily, GlipiZIDE 1 (10 mg) Tablet Oral b.i.d., Imodium A-D 1 Tablet (of 2 mg) Oral daily PRN, Losartan Potassium-HCTZ 1 (100-25 mg) Tablet Oral daily, Lovastatin 1 (40 mg) Tablet Oral daily, Metformin (500 mg) Tablet Oral Take as Directed, Metoprolol Tartrate 1 (100 mg) Tablet Oral daily, Omeprazole 1 Tablet (of 40 mg) Oral daily, Pepcid 1 Tablet (of 20 mg) Oral daily, Tamsulosin HCl 1 (0.4 mg) Capsule Oral b.i.d., twinlab super enzyme caps 1 Tablet daily PRN, Victoza Subcutaneous, Vitamin C 1 (1000 mg) Tablet Oral daily Allergies: Cipro Review of Systems: Review of Systems is not available for this patient. Vital Signs: Performed on Apr 03, 2021 14:14 Height - 72.00 in Weight - 201.6 lbs (HIGH) BSA - 2.14 sq.m BMI - 27.34 Temperature - 96.9 F (LOW) Pulse - 74 /min Respiration - 18 /min BP - 165/64 mm(hg) (HIGH) O2 Sat - 96 % Pain - 0 Fatigue - 0 Performance Status: 0 - Fully active, able to carry on all predisease activities without restrictions. (ECOG) Physical Examination: ENMT - No mouth sores, no thrush, no jaundice, Respiratory - Lungs are clear to auscultation, Cardiovascular - Regular rate and rhythm of heart, Abdomen - Soft, bowel sounds present, Extremities - No visible edema. Lab/Imaging: Most recent lab results are not available for this patient. Impression: History of prostate cancer High risk/high-volume stage IIB (T1c N0 M0) diagnosed in 2011 status post concurrent LHRH agonist (Zoladex ) plus radiation therapy followed by LHRH agonist for year. With excellent response, confirmed with undetectable PSA. Now steady increase in PSA level since August 2015, prostate biopsy done in February [address] scan of abdomen pelvis all were negative for recurrence of disease. Last PSA in April 2017 was 28.3. PSA checked on 06/13/2017 is 36.40 and testosterone level to 298.[address] scan of abdomen pelvis done on 08/21/2017 showed interval slight enlargement right inguinal and retroperitoneal lymph nodes. Bone scan done on 08/21/2017 showed new foci of abnormal bone scan activity of sternal body and left eighth rib; no evidence of rib lesion on the rib radiographs. PSA checked on 08/21/2017 was 37.10. discussed with patient his CT scan of abdomen, pelvis and bone scan findings and his lab workup. The labs showed CBC within normal limits CMP within normal limits and PSA elevated at 37.10 but stable since 06/13/2017. with stable disease/mild progression as per CT scan and bone scan. Patient opted for treatment. recommended Zoladex 10.8 mg subcutaneous every 3 months and xgeva 120 mg every 3 months along with bicalutamide 50 mg daily. Casodex discontinued on 06/09/2018 Plan: Discussed with patient regarding his labs his PSA is 0.022 compared to 0.026 earlier and bone scan and CT scan of abdomen pelvis finding Clinically, patient is doing well with no signs symptoms testing of disease progression, his PSA still subzero and improving, his follow-up CT scan of abdomen shows no lymphadenopathy but slightly increased size of 7 mm nodule in the inferior pole of right kidney. Bone scan shows no active disease At this point we will proceed with his next 3 monthly dose of Zoladex and also change his Xgeva to every 3 months from monthly dose. And also consider right kidney sonogram with special attention to lower pole of right kidney lesion. , If it shows any abnormality, may consider further work-up Patient return to clinic in 3 months with PSA Signed By: Brandy Corcoran M.D. <<Signature on File>>
== END 2021-04-03 12:25 | disposition home or self-care (01) ==
LOC: ONCMED 12:26
PROVIDERS: PCP Physician Assistant Medical; Visit Provider Internal Medicine Hematology & Oncology
DX: C61 Malignant neoplasm of prostate (principal); R97.20 Elevated prostate specific antigen [PSA]; N52.9 Male erectile dysfunction, unspecified; Z79.818 Long term (current) use of other agents affecting estrogen receptors and estrogen levels
CPT/HCPCS: 84153; 96372; 96402; 99215; J9202

== ENCOUNTER → 2021-06-08 14:27 | Outpatient (BNVA) | payer MEDICARE, OTHER, SELFPAY | PROVIDERS: PCP Physician Assistant Medical; Visit Provider Internal Medicine | DX: E11.40 Type 2 diabetes mellitus with diabetic neuropathy, unspecified (principal); E11.65 Type 2 diabetes mellitus with hyperglycemia; C61 Malignant neoplasm of prostate; I63.9 Cerebral infarction, unspecified; I10 Essential (primary) hypertension; Z79.84 Long term (current) use of oral hypoglycemic drugs; Z79.4 Long term (current) use of insulin | CPT/HCPCS: 99214 ==

== ENCOUNTER 2021-06-26 11:00 | Outpatient (CLI) | payer MEDICARE, OTHER, SELFPAY ==
[2021-06-26 12:21] LABS: Prostate Specific Antigen 0.021 ng/mL (0-4)
[2021-06-26] MEDS: lidocaine 1% INJ 20 mL INJECTION (13:25)
[2021-06-26] MEDS: goserelin acetate 10.8 mg Implant SUBCUT (13:35)
--- NOTE | 2021-06-26 16:22 | ONC FU_ITS ---
Dr. Corcoran follow up note Patient: Davey Vanegas Unit #: [id number]: 1945 Dicatated By: Brandy Corcoran M.D.Date of Visit:Jun 26, 2021 Onc Med Follow-up/Prog Note History of Present Illness: Mr. Davey Vanegas, 75 -year-old gentleman with history of prostate cancer diagnosed in September 2011 at that time his PSA level 7.5, and a biopsy showed 11/12 positive, Osito 4+5, 4+3, 3+ 4-marcela 3+3, all large volume CT scan of abdomen pelvis and a bone scan done at that time were negative for metastatic disease patient was started on LHRH agonist plus radiation therapy which he completed in March 2012. With that his PSA improved and become undetectable. Thereafter, he did very well until in August 2015 on his routine/follow-up lab showed PSA increased to 0.24, and gone up to 3.2 in February 2016. And further follow-up showed steady increase in PSA level for that he underwent TRUSP/biopsy in February 2016 which showed no obvious residual disease in the prostate and follow-up CT scan of abdomen pelvis showed no evidence of metastatic disease. At that time it was decided to continue to monitor with PSA level and on 01/29/2017 his PSA gone up to 28.3 from 20.9 earlier. Mr Vanegas's PSA in May 2017 = 36.4; June 2017 = 38.5 and on 08/26/2017 it was 40. He did have restaging imaging with a CT scan of abdomen pelvis done on 08/21/2017. The CT showed interval slight enlargement right inguinal and retroperitoneal lymph nodes. Bone scan done on 08/21/2017 showed new foci of abnormal bone scan activity of sternal body and left eighth rib. treatment options were discussed with him and Mr Hiren have opted to treat with Zoladex every 3 months along with Xgeva for bone mets and Casodex daily, Casodex was later discontinued because of severe hot flashes patient did develop back pain for which he went to [facility] where his pain was diagnosed to be due to neuropathy and treated with a nerve ablation. tolerating Zoladex/Xgeva well Follow-up CT scan of abdomen pelvis and bone scan done on 06/11/2019 showed decreased previous retroperitoneal and right inguinal lymph nodes no enlarged lymph nodes on current exam. Suspicious for progressive blastic bony metastatic disease involving T12 vertebral body and right femoral head since 08/21/2017 but bone scan done on same day showed no evidence of disease progression, the minimal residual focus of increased activity involving the mid sternal body slightly to the left of midline, is considerably decreased from 08/21/2017 and similar to 1 done in 09/08/2018. No other area abnormality seen. On 06/11/2019 His PSA is 0.16 oFollow-up CT PET scan done on December 19, 2019 showed FDG negative dense sclerotic osseous lesion in T12 vertebral body. Other lesions in the sternum, T8-9, right iliac, left iliac are FDG negative to. No evidence of pelvic lymphadenopathy. Bone scan done on March 27, 2021 shows no evidence of metastatic prostate cancer CT scan of abdomen pelvis done March 27, 2021 shows indeterminate but slight increase in size of low-attenuation mass in the lower pole right kidney no pelvic or abdominal lymphadenopathy noticed. Stable osteoblastic foci within the bone of the pelvis and spine. Renal sonogram done on April 10, 2021 showed multiple bilateral renal cysts, follow-up ultrasound in 6 months was recommended Came for follow-up, denies any specific complaints, off and on excessive urination but no hematuria, no dysuria, patient has history of diabetes, on Metformin. No fever chills, no nausea or vomiting, no diarrhea or constipation, occasionally hot flashes otherwise tolerating xyl. Medications: Acetaminophen 2 Tablet (of 325 mg) Oral PRN, AmLODIPine Besylate 1 (10 mg) Tablet Oral daily, Aspirin Adult 1 Tablet (of 325 mg) Oral daily, Atenolol 1 (25 mg) Tablet Oral daily, Empagliflozin (10 mg) Tablet Oral daily, Equate Vision Formula Vitamin 1 Tablet daily, Geritol 1 Capsule daily, GlipiZIDE 1 (10 mg) Tablet Oral b.i.d., Imodium A-D 1 Tablet (of 2 mg) Oral daily PRN, Levemir 10 Unit(s) (of 100 Units/mL) Subcutaneous daily, Losartan Potassium-HCTZ 1 (100-25 mg) Tablet Oral daily, Lovastatin 1 (40 mg) Tablet Oral daily, Metformin (500 mg) Tablet Oral Take as Directed, Metoprolol Tartrate 1 (100 mg) Tablet Oral daily, Omeprazole 1 Tablet (of 40 mg) Oral daily, Pepcid 1 Tablet (of 20 mg) Oral daily, Tamsulosin HCl 1 (0.4 mg) Capsule Oral b.i.d., twinlab super enzyme caps 1 Tablet daily PRN, Victoza Subcutaneous, Vitamin C 1 (1000 mg) Tablet Oral daily Allergies: Cipro Review of Systems: Review of Systems is not available for this patient. Vital Signs: Performed on Jun 26, 2021 13:15 Height - 72.00 in Weight - 200.4 lbs (LOW) BSA - 2.13 sq.m BMI - 27.18 Temperature - 96.8 F (LOW) Pulse - 84 /min Respiration - 18 /min BP - 157/67 mm(hg) (HIGH) O2 Sat - 98 % Pain - 0 Fatigue - 0 Performance Status: 0 - Fully active, able to carry on all predisease activities without restrictions. (ECOG) Physical Examination: ENMT - No mouth sores, no thrush, no jaundice, Respiratory - Lungs are clear to auscultation, Cardiovascular - Regular rate and rhythm of heart, Abdomen - Soft, bowel sounds present, Extremities - No visible edema. Lab/Imaging: Test performed on Apr 10, 2021 12:58 BUN 14 mg/dL Creatinine 0.8 mg/dL Cr Clearance (Est) 104.78 mL/min Impression: History of prostate cancer High risk/high-volume stage IIB (T1c N0 M0) diagnosed in 2011 status post concurrent LHRH agonist (Zoladex ) plus radiation therapy followed by LHRH agonist for year. With excellent response, confirmed with undetectable PSA. Now steady increase in PSA level since August 2015, prostate biopsy done in February [address] scan of abdomen pelvis all were negative for recurrence of disease. Last PSA in April 2017 was 28.3. PSA checked on 06/13/2017 is 36.40 and testosterone level to 298.[address] scan of abdomen pelvis done on 08/21/2017 showed interval slight enlargement right inguinal and retroperitoneal lymph nodes. Bone scan done on 08/21/2017 showed new foci of abnormal bone scan activity of sternal body and left eighth rib; no evidence of rib lesion on the rib radiographs. PSA checked on 08/21/2017 was 37.10. discussed with patient his CT scan of abdomen, pelvis and bone scan findings and his lab workup. The labs showed CBC within normal limits CMP within normal limits and PSA elevated at 37.10 but stable since 06/13/2017. with stable disease/mild progression as per CT scan and bone scan. Patient opted for treatment. recommended Zoladex 10.8 mg subcutaneous every 3 months and xgeva 120 mg every 3 months along with bicalutamide 50 mg daily. Casodex discontinued on 06/09/2018 Plan: Discussed with patient regarding his labs PSA 0.021 compared to 0.022 and renal sonogram was done as follow-up CT scan of abdomen pelvis done recently showed slight increase in size of low-attenuation mass in the lower pole right kidney and a renal sonogram shows bilateral multiple cysts, follow-up in 6-month recommended Clinically, patient doing well with no new signs symptoms just of disease progression, his PSA is stable and subzero, will continue with 3 monthly Zoladex and proceed next dose today and then return to clinic in 3 months with PSA. As far as excessive urination is concerned probably due to uncontrolled diabetes, patient was advised to monitor his blood sugar, if no improvement in symptoms, he will discuss with his PMD Signed By: Brandy Corcoran M.D. <<Signature on File>>
== END 2021-06-26 11:01 | disposition home or self-care (01) ==
LOC: ONCMED 11:04
PROVIDERS: PCP Family Medicine; Visit Provider Internal Medicine Hematology & Oncology
DX: C61 Malignant neoplasm of prostate (principal); C77.8 Secondary and unspecified malignant neoplasm of lymph nodes of multiple regions; C79.51 Secondary malignant neoplasm of bone; N52.9 Male erectile dysfunction, unspecified; Z79.818 Long term (current) use of other agents affecting estrogen receptors and estrogen levels; Z79.899 Other long term (current) drug therapy
CPT/HCPCS: 84153; 96372; 96402; 99215; J9202

== ENCOUNTER → 2021-08-30 10:37 | Outpatient (BNVA) | payer MEDICARE, OTHER, SELFPAY | PROVIDERS: PCP Family Medicine; Visit Provider Internal Medicine | DX: E11.40 Type 2 diabetes mellitus with diabetic neuropathy, unspecified (principal); E11.65 Type 2 diabetes mellitus with hyperglycemia; I63.9 Cerebral infarction, unspecified; Z79.84 Long term (current) use of oral hypoglycemic drugs | CPT/HCPCS: 99214 ==

== ENCOUNTER 2021-09-26 12:08 | Outpatient (CLI) | payer MEDICARE, OTHER, SELFPAY ==
[2021-09-26 13:17] LABS: Prostate Specific Antigen 0.016 ng/mL (0-4)
[2021-09-26] MEDS: lidocaine 1% INJ 20 mL INJECTION (14:40)
[2021-09-26] MEDS: goserelin acetate 10.8 mg Implant SUBCUT (15:00)
--- NOTE | 2021-09-27 09:56 | ONC FU_ITS ---
Dr. Corcoran follow up note Patient: Davey Vanegas Unit #: [id number]: 1945 Dicatated By: Brandy Corcoran M.D.Date of Visit:Sep 26, 2021 Onc Med Follow-up/Prog Note History of Present Illness: Mr. Davey Vanegas, 75 -year-old gentleman with history of prostate cancer diagnosed in September 2011 at that time his PSA level 7.5, and a biopsy showed 11/12 positive, Osito 4+5, 4+3, 3+ 4-marcela 3+3, all large volume CT scan of abdomen pelvis and a bone scan done at that time were negative for metastatic disease patient was started on LHRH agonist plus radiation therapy which he completed in March 2012. With that his PSA improved and become undetectable. Thereafter, he did very well until in August 2015 on his routine/follow-up lab showed PSA increased to 0.24, and gone up to 3.2 in February 2016. And further follow-up showed steady increase in PSA level for that he underwent TRUSP/biopsy in February 2016 which showed no obvious residual disease in the prostate and follow-up CT scan of abdomen pelvis showed no evidence of metastatic disease. At that time it was decided to continue to monitor with PSA level and on 01/29/2017 his PSA gone up to 28.3 from 20.9 earlier. Mr Vanegas's PSA in May 2017 = 36.4; June 2017 = 38.5 and on 08/26/2017 it was 40. He did have restaging imaging with a CT scan of abdomen pelvis done on 08/21/2017. The CT showed interval slight enlargement right inguinal and retroperitoneal lymph nodes. Bone scan done on 08/21/2017 showed new foci of abnormal bone scan activity of sternal body and left eighth rib. treatment options were discussed with him and Mr Hiren have opted to treat with Zoladex every 3 months along with Xgeva for bone mets and Casodex daily, Casodex was later discontinued because of severe hot flashes patient did develop back pain for which he went to [place] [facility] where his pain was diagnosed to be due to neuropathy and treated with a nerve ablation. tolerating Zoladex/Xgeva well Follow-up CT scan of abdomen pelvis and bone scan done on 06/11/2019 showed decreased previous retroperitoneal and right inguinal lymph nodes no enlarged lymph nodes on current exam. Suspicious for progressive blastic bony metastatic disease involving T12 vertebral body and right femoral head since 08/21/2017 but bone scan done on same day showed no evidence of disease progression, the minimal residual focus of increased activity involving the mid sternal body slightly to the left of midline, is considerably decreased from 08/21/2017 and similar to 1 done in 09/08/2018. No other area abnormality seen. On 06/11/2019 His PSA is 0.16 oFollow-up CT PET scan done on December 19, 2019 showed FDG negative dense sclerotic osseous lesion in T12 vertebral body. Other lesions in the sternum, T8-9, right iliac, left iliac are FDG negative to. No evidence of pelvic lymphadenopathy. Bone scan done on March 27, 2021 shows no evidence of metastatic prostate cancer CT scan of abdomen pelvis done March 27, 2021 shows indeterminate but slight increase in size of low-attenuation mass in the lower pole right kidney no pelvic or abdominal lymphadenopathy noticed. Stable osteoblastic foci within the bone of the pelvis and spine. Renal sonogram done on April 10, 2021 showed multiple bilateral renal cysts, follow-up ultrasound in 6 months was recommended Came for follow-up, denies any specific complaints, no fever chills, no nausea or vomiting, no diarrhea or constipation, no dysuria or hematuria, no new bony pains, occasionally hot flashes otherwise tolerating Zoladex well Medications: Acetaminophen 2 Tablet (of 325 mg) Oral PRN, AmLODIPine Besylate 1 (10 mg) Tablet Oral daily, Aspirin Adult 1 Tablet (of 325 mg) Oral daily, Atenolol 1 (25 mg) Tablet Oral daily, Empagliflozin (10 mg) Tablet Oral daily, Equate Vision Formula Vitamin 1 Tablet daily, Geritol 1 Capsule daily, GlipiZIDE 1 (10 mg) Tablet Oral b.i.d., Imodium A-D 1 Tablet (of 2 mg) Oral daily PRN, Levemir 10 Unit(s) (of 100 Units/mL) Subcutaneous daily, Losartan Potassium-HCTZ 1 (100-25 mg) Tablet Oral daily, Lovastatin 1 (40 mg) Tablet Oral daily, Metformin (500 mg) Tablet Oral Take as Directed, Metoprolol Tartrate 1 (100 mg) Tablet Oral daily, Omeprazole 1 Tablet (of 40 mg) Oral daily, Pepcid 1 Tablet (of 20 mg) Oral daily, Tamsulosin HCl 1 (0.4 mg) Capsule Oral b.i.d., twinlab super enzyme caps 1 Tablet daily PRN, Victoza Subcutaneous, Vitamin C 1 (1000 mg) Tablet Oral daily Allergies: Cipro Review of Systems: Review of Systems is not available for this patient. Vital Signs: Performed on Sep 26, 2021 14:22 Height - 72.00 in Weight - 194.8 lbs (LOW) BSA - 2.11 sq.m BMI - 26.42 Temperature - 97.4 F (LOW) Pulse - 63 /min Respiration - 19 /min BP - 161/69 mm(hg) (HIGH) O2 Sat - 97 % Pain - 0 Fatigue - 0 Performance Status: 0 - Fully active, able to carry on all predisease activities without restrictions. (ECOG) Physical Examination: ENMT - No mouth sores, no thrush, no jaundice, Respiratory - Lungs are clear to auscultation, Cardiovascular - Regular rate and rhythm of heart, Abdomen - Soft, bowel sounds present, Extremities - No visible edema. Lab/Imaging: Test performed on Apr 10, 2021 12:58 BUN 14 mg/dL Creatinine 0.8 mg/dL Cr Clearance (Est) 104.78 mL/min Impression: History of prostate cancer High risk/high-volume stage IIB (T1c N0 M0) diagnosed in 2011 status post concurrent LHRH agonist (Zoladex ) plus radiation therapy followed by LHRH agonist for year. With excellent response, confirmed with undetectable PSA. Now steady increase in PSA level since August 2015, prostate biopsy done in February [address] scan of abdomen pelvis all were negative for recurrence of disease. Last PSA in April 2017 was 28.3. PSA checked on 06/13/2017 is 36.40 and testosterone level to 298.[address] scan of abdomen pelvis done on 08/21/2017 showed interval slight enlargement right inguinal and retroperitoneal lymph nodes. Bone scan done on 08/21/2017 showed new foci of abnormal bone scan activity of sternal body and left eighth rib; no evidence of rib lesion on the rib radiographs. PSA checked on 08/21/2017 was 37.10. discussed with patient his CT scan of abdomen, pelvis and bone scan findings and his lab workup. The labs showed CBC within normal limits CMP within normal limits and PSA elevated at 37.10 but stable since 06/13/2017. with stable disease/mild progression as per CT scan and bone scan. Patient opted for treatment. recommended Zoladex 10.8 mg subcutaneous every 3 months and xgeva 120 mg every 3 months along with bicalutamide 50 mg daily. Casodex discontinued on 06/09/2018 Plan: Discussed with patient regarding his labs, his PSA is 0.016 compared to 0.021 on June 26, 2021 Renal sonogram done on September 20, 2021 showed multiple bilateral renal cysts there is no new cyst or no evidence of solid mass. Clinically, patient is doing well with no new signs symptom suggestive of disease progression, tolerating Zoladex well, will proceed with next 3 monthly dose today and he will return to clinic in 3 months with PSA and for next dose of Zoladex As his PSA continue to improve and no new symptom suggestive of disease progression and scans done in recent past showed no evidence of active disease, discussed with patient regarding treatment options which include continue with 3 monthly Zoladex or consider intermittent ADT, patient is tolerating Zoladex well except mild but tolerable hot flashes, patient preferred to continue Zoladex for the time being. Patient missed his Xgeva infusions in the past, may consider if needed, we will repeat his bone scan and if it shows, may resume Xgeva otherwise may consider every 6 months. We will proceed with his next 3 monthly dose of Zoladex and then he will return to clinic in 3 months with PSA and bone scan. Signed By: Brandy Corcoran M.D. <<Signature on File>>
== END 2021-09-26 12:09 | disposition home or self-care (01) ==
LOC: ONCMED 12:12
PROVIDERS: PCP Family Medicine; Visit Provider Internal Medicine Hematology & Oncology
DX: C61 Malignant neoplasm of prostate (principal); N52.9 Male erectile dysfunction, unspecified; N28.1 Cyst of kidney, acquired; Z79.818 Long term (current) use of other agents affecting estrogen receptors and estrogen levels; Z79.899 Other long term (current) drug therapy
CPT/HCPCS: 36415; 84153; 96372; 96402; 99215; J9202

== ENCOUNTER → 2021-12-04 15:08 | Outpatient (BNVA) | payer MEDICARE, OTHER, SELFPAY | PROVIDERS: PCP Family Medicine; Visit Provider Internal Medicine | DX: E11.40 Type 2 diabetes mellitus with diabetic neuropathy, unspecified (principal); E11.65 Type 2 diabetes mellitus with hyperglycemia; E78.2 Mixed hyperlipidemia; I63.9 Cerebral infarction, unspecified; Z79.84 Long term (current) use of oral hypoglycemic drugs; Z79.4 Long term (current) use of insulin | CPT/HCPCS: 99214 ==

== ENCOUNTER 2021-12-28 12:00 | Oncology outpatient (recurring) (ONCR) | payer MEDICARE, OTHER, SELFPAY ==
--- NOTE | 2021-12-27 09:10 | NM_ITS ---
WS: [id number] NUCLEAR MEDICINE BONE SCAN Radiopharmaceutical: 24.2 Tc-99m MDP mCi IV Injection site: Antecubital Postinjection imaging delay: 1 hr CLINICAL INFORMATION: PROSTATE CANCER METS TO BONE COMPARISON: March 27, 2021 FINDINGS: Bone lesions: There are no osseous lesions suspicious for metastatic disease. Soft tissue contours: Normal. Kidneys: Normal. 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 Degenerative jolly es cervical spine, lower lumbar spine and both knees NM/NM bone scan whole body* [id number] IMPRESSION: No evidence of osseous metastatic disease.
[2021-12-28] MEDS: denosumab 120 mg SDV SUBCUT (14:32)
[2021-12-28] MEDS: lidocaine 1% INJ 20 mL SUBCUT (14:32)
[2021-12-28] MEDS: goserelin acetate 10.8 mg Implant SUBCUT (14:59)
== END 2022-01-21 23:59 | disposition home or self-care (01) ==
LOC: ONCMED 13:21
PROVIDERS: PCP Family Medicine; Visit Provider Internal Medicine Hematology & Oncology
DX: Z51.11 Encounter for antineoplastic chemotherapy (principal); C61 Malignant neoplasm of prostate; C79.51 Secondary malignant neoplasm of bone; N28.1 Cyst of kidney, acquired
CPT/HCPCS: 36415; 78306; 84153; 96372; 96402; 99214; A9561; J0897; J9202

== ENCOUNTER 2021-12-28 12:18 | Outpatient (CLI) | payer MEDICARE, OTHER, SELFPAY ==
[2021-12-28 13:09] LABS: Prostate Specific Antigen < 0.014 ng/mL (0-4)
== END 2021-12-28 12:19 | disposition home or self-care (01) ==
LOC: LAB 12:20
PROVIDERS: PCP Family Medicine; Visit Provider Internal Medicine Hematology & Oncology
DX: C61 Malignant neoplasm of prostate (principal)
CPT/HCPCS: 36415; 84153

== ENCOUNTER → 2022-03-07 13:41 | Outpatient (BNVA) | payer MEDICARE, OTHER, SELFPAY | PROVIDERS: PCP Family Medicine; Visit Provider Internal Medicine | DX: E11.40 Type 2 diabetes mellitus with diabetic neuropathy, unspecified (principal); E11.65 Type 2 diabetes mellitus with hyperglycemia; E78.2 Mixed hyperlipidemia; I63.9 Cerebral infarction, unspecified; Z79.84 Long term (current) use of oral hypoglycemic drugs; Z79.4 Long term (current) use of insulin | CPT/HCPCS: 99214 ==

== ENCOUNTER 2022-03-30 08:17 | Oncology outpatient (recurring) (ONCR) | payer MEDICARE, OTHER, SELFPAY ==
[2022-03-30 09:50] LABS: Prostate Specific Antigen < 0.014 ng/mL (0-4)
[2022-03-30] MEDS: leuprolide 22.5 mg Kit IM (10:40)
== END 2022-04-23 23:59 | disposition home or self-care (01) ==
PROVIDERS: PCP Family Medicine; Visit Provider Internal Medicine Hematology & Oncology
DX: C61 Malignant neoplasm of prostate; C79.51 Secondary malignant neoplasm of bone; Z79.818 Long term (current) use of other agents affecting estrogen receptors and estrogen levels; Z79.899 Other long term (current) drug therapy; Z51.11 Encounter for antineoplastic chemotherapy
CPT/HCPCS: 36415; 84153; 96402; 99214; J9217

== ENCOUNTER → 2022-06-06 13:46 | Outpatient (BNVA) | payer MEDICARE, OTHER, SELFPAY | PROVIDERS: PCP Family Medicine; Visit Provider Internal Medicine | DX: E11.40 Type 2 diabetes mellitus with diabetic neuropathy, unspecified (principal); E11.65 Type 2 diabetes mellitus with hyperglycemia; E78.2 Mixed hyperlipidemia; I63.9 Cerebral infarction, unspecified; Z79.84 Long term (current) use of oral hypoglycemic drugs; Z79.4 Long term (current) use of insulin | CPT/HCPCS: 99214 ==

== ENCOUNTER 2022-07-02 09:32 | Outpatient (CLI) | payer MEDICARE, OTHER, SELFPAY ==
[2022-07-02] MEDS: iohexol 350 mg/mL 500 mL Btl (per mL) PO (10:20)
[2022-07-02 10:51] LABS: Blood Urea Nitrogen 14 mg/dL (8-23)
--- NOTE | 2022-07-02 11:00 | CT_ITS ---
WS: [id number] CT ABDOMEN PELVIS TECHNIQUE: Contrast-enhanced CT of the abdomen and pelvis with coronal and sagittal reformatted image s. CLINICAL INFORMATION: Follow up COMPARISON: CT abdomen pelvis March 27, 2021 PET/CT December 19, 2019 DLP: 660.[address] scans at [facility] use at least one of these dose optimization techniques: automated e xposure control; mA and/or kV adjustment per patient size (includes targeted exams where dose is matc hed to clinical indication); or iterative reconstruction. FINDINGS: Cholelithiasis. Lung bases are well aerated. Diffuse fatty infiltration liver. Normal portal vein and splenic vein. Normal pancreatic parenchymal enhancement. Splenic artery calcification. Normal GE alla ction. Adrenal glands are normal. Normal renal parenchymal enhancement. No hydronephrosis. Stable RIG HT lower pole renal lesion measuring 10 mm slightly increased from previous where it measured 7 mm. T his is technically indeterminant with slight increased attenuation and could be further evaluated wit h ultrasound. Additional incidental LEFT renal cyst.Normal caliber abdominal aorta. Aortic calcification. Celiac an d SMA appear patent. No periaortic or retroperitoneal lymphadenopathy. Urine distended bladder with a ir-fluid level. Surgical clips about the prostate. Normal sigmoid colon. No abdominal or pelvic lymphadenopathy. No inguinal lymphadenopathy. Moderate s pondylitic changes lumbar spine. Disc space narrowing worse at L3-L4 and L5-S1. Small sclerotic lesio ns in the pelvis and sacrum are stable. Additional sclerotic lesion in a LEFT 8th rib is unchanged. S table enchondroma proximal RIGHT femur. CT/CT abdomen pelvis w con* [id number] IMPRESSION: 1. No evidence of progressed metastatic disease in the abdomen or pelvis. 2. Cholelithiasis. 3. Diffuse fatty infiltration liver. 4. Slight increase in size of the low-attenuation lesion lower pole RIGHT kidn ey measuring 10 mm compared to 7 mm previous. This may represent a complex cyst and indeterminant and can be followed up with ultrasound. 5. Stable sclerotic bone lesions as previously described and described above. 6. Air-fluid level in the bladder. Recommend correlation for recent Mckinley cath eter placement or bladder intervention.
[2022-07-02] MEDS: iohexol 350 mg/mL 500 mL Btl (per mL) IV (11:01)
== END 2022-07-02 09:33 | disposition home or self-care (01) ==
LOC: RAD 09:34
PROVIDERS: PCP Family Medicine; Visit Provider Internal Medicine Hematology & Oncology
DX: C61 Malignant neoplasm of prostate (principal); C79.51 Secondary malignant neoplasm of bone
CPT/HCPCS: 74177; 82565; 84520; Q9967

== ENCOUNTER 2022-07-04 11:05 | Oncology outpatient (recurring) (ONCR) | payer MEDICARE, OTHER, SELFPAY ==
[2022-07-04 12:03] LABS: Prostate Specific Antigen < 0.014 ng/mL (0-4)
[2022-07-04] MEDS: leuprolide 22.5 mg Kit IM (13:53)
[2022-07-04] MEDS: denosumab 120 mg SDV SUBCUT (14:14)
[2022-07-04 14:25] VITALS: BP 124/72; PULSE 75; RESP 18; TEMP 36.6; O2SAT 95
== END 2022-07-24 23:59 | disposition home or self-care (01) ==
PROVIDERS: PCP Family Medicine; Visit Provider Internal Medicine Hematology & Oncology
DX: C61 Malignant neoplasm of prostate (principal); C79.51 Secondary malignant neoplasm of bone; K80.20 Calculus of gallbladder without cholecystitis without obstruction; K76.0 Fatty (change of) liver, not elsewhere classified; N28.89 Other specified disorders of kidney and ureter; Z79.818 Long term (current) use of other agents affecting estrogen receptors and estrogen levels; Z79.899 Other long term (current) drug therapy
CPT/HCPCS: 36415; 84153; 96372; 96401; 96402; 99214; J0897; J9217

== ENCOUNTER → 2022-09-11 14:58 | Outpatient (BNVA) | payer MEDICARE, OTHER, SELFPAY | PROVIDERS: PCP Family Medicine; Visit Provider Internal Medicine | DX: E11.9 Type 2 diabetes mellitus without complications (principal); Z79.84 Long term (current) use of oral hypoglycemic drugs; Z79.4 Long term (current) use of insulin; E78.2 Mixed hyperlipidemia | CPT/HCPCS: 99214 ==

== ENCOUNTER 2022-10-04 14:26 | Oncology outpatient (recurring) (ONCR) | payer MEDICARE, OTHER, SELFPAY ==
[2022-10-04 15:14] LABS: Basophils % 0.3 %; Eosinophils # 0.4 10^3/uL (0.0-0.8); Eosinophils % 4.3 %; Hematocrit 39.3 % (42.0-52.0); Hemoglobin 13.3 g/dL (11.7-16.6); Lymphocytes % 33.8 %; Mean Corpuscular HGB Conc 33.8 g/dL (30.0-36.0); Mean Corpuscular Hemoglobin 30.4 pg (28.0-34.0); Mean Corpuscular Volume 89.9 fl (80-94); Mean Platelet Volume 9.7 fL (7.4-10.4); Monocytes # 0.8 10^3/uL (0.2-0.9); Monocytes % 9.4 %; Neutrophils % 51.9 %; Nucleated Red Blood Cells % 0 %; Platelet Count 322 10^3/cmm (130-400); Red Blood Count 4.37 10^6/uL (4.1-5.3); Red Cell Distribution Width 12.7 % (12.1-15.1); White Blood Count 8.9 10^3/uL (4.0-10.0)
[2022-10-04 15:26] LABS: Alanine Aminotransferase 16 U/L (0-41); Albumin Level 3.8 g/dL (3.5-5.2); Alkaline Phosphatase 89 U/L (40-130); Anion Gap 15.9 (5-19); Aspartate Amino Transferase 14 U/L (0-40); Blood Urea Nitrogen 13 mg/dL (8-23); Calcium 9.2 mg/dL (8.5-10.5); Carbon Dioxide 27 mmol/L (22-29); Chloride 99 mmol/L (98-107); Globulin 3.2 g/dL (1.3-4.6); Glucose 173 mg/dL (65-115); Osmolality Calculated 290 mOsm/kg (285-295); Potassium 3.9 mmol/L (3.5-5.1); Sodium 138 mmol/L (136-145); Testosterone Total 2.5 ng/dL (193-740); Total Bilirubin 0.6 mg/dL (0.15-1.2)
[2022-10-04 15:30] LABS: Prostate Specific Antigen < 0.014 ng/mL (0-4)
[2022-10-04] MEDS: leuprolide 22.5 mg Kit IM (16:24)
== END 2022-10-21 23:59 | disposition home or self-care (01) ==
PROVIDERS: PCP Family Medicine; Visit Provider Internal Medicine Hematology & Oncology
DX: C61 Malignant neoplasm of prostate (principal); C79.51 Secondary malignant neoplasm of bone; N28.89 Other specified disorders of kidney and ureter; Z79.818 Long term (current) use of other agents affecting estrogen receptors and estrogen levels; Z79.899 Other long term (current) drug therapy
CPT/HCPCS: 36415; 80053; 84153; 84403; 85025; 96402; 99214; J9217

== ENCOUNTER 2022-10-15 16:10 | Outpatient (CLI) | payer MEDICARE, OTHER, SELFPAY ==
--- NOTE | 2022-10-15 16:30 | US_ITS ---
WS: [id number] RENAL ULTRASOUND HISTORY: Correlate with CT SCAN. LESION OF RT [place] KIDNEY COMPARISON: CT 07/02/2022 TECHNIQUE: 2-D and color Doppler imaging of the kidney submitted. Right kidney: 10.4 cm x 4.7 cm x 6.0 cm. Cortex: 1.0 cm Normal size kidney. No hydronephrosis. Well-rounded hypoechoic mass lower pole measures 1.2 x 1.6 x 1 .4 cm. Correlates with the recent CT. This does appear to be a cyst. Left kidney: 10.0 cm x 5.5 cm x 4.9 cm. Cortex: 1.7 cm Normal echogenicity with no hydronephrosis or mass. Aorta: Normal. Urinary Bladder: Minimally distended bladder. Mild wall thickening is diffuse. Heterogeneous prostate gland. US/US renal BI* [id number] IMPRESSION: 1. Simple cyst lower pole RIGHT kidney with a maximum diameter of 1.6 cm. Barak esponds to the prior CT of 07/02/2022. 2. No hydronephrosis.
== END 2022-10-15 16:11 | disposition home or self-care (01) ==
LOC: RAD 16:18
PROVIDERS: PCP Family Medicine; Visit Provider Internal Medicine Hematology & Oncology
DX: N28.9 Disorder of kidney and ureter, unspecified (principal)
CPT/HCPCS: 76770

== ENCOUNTER 2023-01-07 11:54 | Oncology outpatient (recurring) (ONCR) | payer MEDICARE, OTHER, SELFPAY ==
[2023-01-07 12:11] VITALS: BP 171/70; PULSE 59; RESP 18; TEMP 36.2; O2SAT 98
[2023-01-07 12:33] LABS: Basophils # 0.1 10^3/uL (0.0-0.1); Basophils % 0.5 %; Eosinophils # 0.3 10^3/uL (0.0-0.8); Eosinophils % 2.7 %; Hematocrit 40.4 % (42.0-52.0); Hemoglobin 13.6 g/dL (11.7-16.6); Lymphocytes % 29.3 %; Mean Corpuscular HGB Conc 33.7 g/dL (30.0-36.0); Mean Corpuscular Hemoglobin 30.4 pg (28.0-34.0); Mean Corpuscular Volume 90.4 fl (80-94); Monocytes % 9.9 %; Neutrophils # 5.76 10^3/uL (1.8-7.7); Neutrophils % 57.3 %; Nucleated Red Blood Cells % 0 %; Platelet Count 327 10^3/cmm (130-400); Red Blood Count 4.47 10^6/uL (4.1-5.3); Red Cell Distribution Width 12.5 % (12.1-15.1); White Blood Count 10.1 10^3/uL (4.0-10.0)
[2023-01-07 12:57] LABS: Alanine Aminotransferase 14 U/L (0-41); Alkaline Phosphatase 75 U/L (40-130); Anion Gap 15.2 (5-19); Aspartate Amino Transferase 16 U/L (0-40); Blood Urea Nitrogen 19 mg/dL (8-23); Calcium 9.2 mg/dL (8.5-10.5); Carbon Dioxide 30 mmol/L (22-29); Chloride 98 mmol/L (98-107); Globulin 2.7 g/dL (1.3-4.6); Glucose 133 mg/dL (65-115); Osmolality Calculated 292 mOsm/kg (285-295); Potassium 4.2 mmol/L (3.5-5.1); Sodium 139 mmol/L (136-145); Testosterone Total 2.5 ng/dL (193-740); Total Bilirubin 0.7 mg/dL (0.15-1.2); Total Protein 6.7 g/dL (6.6-8.7)
[2023-01-07 13:01] LABS: Prostate Specific Antigen < 0.014 ng/mL (0-4)
[2023-01-07] MEDS: leuprolide 22.5 mg Kit IM (14:56)
[2023-01-07] MEDS: denosumab 120 mg SDV SUBCUT (14:56)
== END 2023-01-21 23:59 | disposition home or self-care (01) ==
PROVIDERS: PCP Family Medicine; Visit Provider Internal Medicine Hematology & Oncology
DX: C61 Malignant neoplasm of prostate (principal); C79.51 Secondary malignant neoplasm of bone; K80.20 Calculus of gallbladder without cholecystitis without obstruction; K76.0 Fatty (change of) liver, not elsewhere classified; N28.89 Other specified disorders of kidney and ureter; Z79.818 Long term (current) use of other agents affecting estrogen receptors and estrogen levels; Z79.899 Other long term (current) drug therapy
CPT/HCPCS: 36415; 80053; 84153; 84403; 85025; 96372; 96402; 99214; J0897; J9217

== ENCOUNTER 2023-01-07 15:53 | Outpatient (CLI) | payer MEDICARE, OTHER, SELFPAY ==
[2023-01-07 17:28] LABS: Estmated Average Glucose 220; Hemoglobin A1C 9.3 % (4.0-6.0)
[2023-01-07 17:55] LABS: Alanine Aminotransferase 13 U/L (0-41); Albumin Level 3.8 g/dL (3.5-5.2); Alkaline Phosphatase 80 U/L (40-130); Anion Gap 13.6 (5-19); Aspartate Amino Transferase 13 U/L (0-40); Blood Urea Nitrogen 21 mg/dL (8-23); Calcium 9.1 mg/dL (8.5-10.5); Carbon Dioxide 29 mmol/L (22-29); Chloride 96 mmol/L (98-107); Chol HDL Ratio 3.79 mg/dL (1.0-5.00); Cholesterol 159 mg/dL (0-200); Globulin 2.7 g/dL (1.3-4.6); Glucose 305 mg/dL (65-115); HDL Cholesterol 42 mg/dL (60-100); LDL Cholesterol Calculated 72 mg/dL (50-129); LDL HDL Ratio 1.71 RATIO (0.00-3.22); Osmolality Calculated 294 mOsm/kg (285-295); Potassium 3.6 mmol/L (3.5-5.1); Sodium 135 mmol/L (136-145); Total Bilirubin 0.5 mg/dL (0.15-1.2); Total Protein 6.5 g/dL (6.6-8.7); Triglycerides 224 mg/dL (0-150)
[2023-01-07 18:00] LABS: Creatinine Urine, Random 58 mg/dL (39-259); Microalbum Creatinine Ratio Ur 17 mg/dL (0-20); Microalbumin Random Urine 1 ug/dL (0-20)
== END 2023-01-07 15:54 | disposition home or self-care (01) ==
LOC: LAB 15:55
PROVIDERS: PCP Family Medicine; Visit Provider Internal Medicine
DX: E11.40 Type 2 diabetes mellitus with diabetic neuropathy, unspecified (principal); E11.65 Type 2 diabetes mellitus with hyperglycemia
CPT/HCPCS: 36415; 80053; 80061; 82044; 83036

== ENCOUNTER → 2023-01-14 13:46 | Outpatient (BNVA) | payer MEDICARE, OTHER, SELFPAY | PROVIDERS: PCP Family Medicine; Visit Provider Internal Medicine | DX: E11.40 Type 2 diabetes mellitus with diabetic neuropathy, unspecified (principal); E11.65 Type 2 diabetes mellitus with hyperglycemia; E78.2 Mixed hyperlipidemia; I63.9 Cerebral infarction, unspecified | CPT/HCPCS: 99214 ==

== ENCOUNTER 2023-04-01 12:56 | Oncology outpatient (recurring) (ONCR) | payer MEDICARE, OTHER, SELFPAY ==
[2023-04-01 13:36] VITALS: BP 154/69; PULSE 80; RESP 16; TEMP 36.8; O2SAT 98
[2023-04-01 14:23] LABS: Estmated Average Glucose 220; Hemoglobin A1C 9.3 % (4.0-6.0)
[2023-04-01 14:26] LABS: Alanine Aminotransferase 12 U/L (0-41); Albumin Level 3.8 g/dL (3.5-5.2); Alkaline Phosphatase 107 U/L (40-130); Anion Gap 19.9 (5-19); Aspartate Amino Transferase 12 U/L (0-40); Blood Urea Nitrogen 23 mg/dL (8-23); Calcium 8.8 mg/dL (8.5-10.5); Carbon Dioxide 22 mmol/L (22-29); Chloride 95 mmol/L (98-107); Chol HDL Ratio 3.93 mg/dL (1.0-5.00); Cholesterol 165 mg/dL (0-200); Globulin 2.7 g/dL (1.3-4.6); HDL Cholesterol 42 mg/dL (60-100); LDL Cholesterol Calculated 64 mg/dL (50-129); LDL HDL Ratio 1.52 RATIO (0.00-3.22); Osmolality Calculated 304 mOsm/kg (285-295); Potassium 3.9 mmol/L (3.5-5.1); Sodium 133 mmol/L (136-145); Total Bilirubin 0.4 mg/dL (0.15-1.2); Total Protein 6.5 g/dL (6.6-8.7); Triglycerides 296 mg/dL (0-150)
[2023-04-01 14:27] LABS: Glucose 540 mg/dL (65-115)
[2023-04-01 14:38] LABS: Creatinine Urine, Random 40 mg/dL (39-259); Microalbumin Random Urine 2 ug/dL (0-20)
[2023-04-01 14:41] LABS: Microalbum Creatinine Ratio Ur 50 mg/dL (0-20)
[2023-04-01 15:12] LABS: Basophils # 0.1 10^3/uL (0.0-0.1); Basophils % 0.6 %; Eosinophils # 0.3 10^3/uL (0.0-0.8); Eosinophils % 3.5 %; Hematocrit 38.1 % (37-53); Lymphocytes # 2.2 10^3/uL (0.8-4.8); Lymphocytes % 27.2 %; Mean Corpuscular HGB Conc 34.4 g/dL (30-55); Mean Corpuscular Volume 90.1 fl (82-101); Monocytes # 0.7 10^3/uL (0.2-0.9); Monocytes % 8.4 %; Neutrophils # 4.78 10^3/uL (1.8-7.7); Neutrophils % 60.2 %; Nucleated Red Blood Cells % 0 %; Platelet Count 308 10^3/cmm (157-399); Red Blood Count 4.23 10^6/uL (3.85-5.65); Red Cell Distribution Width 12.7 % (12.1-15.1); White Blood Count 7.95 10^3/uL (3.29-11.43)
[2023-04-01 15:44] LABS: Testosterone Total 2.5 ng/dL (193-740)
[2023-04-01] MEDS: leuprolide 22.5 mg Kit IM (15:44)
[2023-04-01 15:45] LABS: Prostate Specific Antigen < 0.014 ng/mL (0-4)
== END 2023-04-23 23:59 | disposition home or self-care (01) ==
PROVIDERS: Internal Medicine; Internal Medicine Medical Oncology; PCP Family Medicine; Visit Provider Internal Medicine Hematology & Oncology
DX: C61 Malignant neoplasm of prostate (principal); C79.51 Secondary malignant neoplasm of bone; K80.20 Calculus of gallbladder without cholecystitis without obstruction; K76.0 Fatty (change of) liver, not elsewhere classified; N28.89 Other specified disorders of kidney and ureter; Z79.818 Long term (current) use of other agents affecting estrogen receptors and estrogen levels; Z79.899 Other long term (current) drug therapy; Z51.11 Encounter for antineoplastic chemotherapy
CPT/HCPCS: 36415; 80053; 80061; 82044; 83036; 84153; 84403; 85025; 96402; 99214; J9217

== ENCOUNTER → 2023-04-17 10:30 | Outpatient (BNVA) | payer MEDICARE, OTHER, SELFPAY | PROVIDERS: PCP Family Medicine; Visit Provider Internal Medicine | DX: E11.65 Type 2 diabetes mellitus with hyperglycemia; E78.2 Mixed hyperlipidemia; Z79.4 Long term (current) use of insulin; E11.40 Type 2 diabetes mellitus with diabetic neuropathy, unspecified; Z79.84 Long term (current) use of oral hypoglycemic drugs | CPT/HCPCS: 99214 ==

== ENCOUNTER 2023-07-08 14:00 | Oncology outpatient (recurring) (ONCR) | payer MEDICARE, OTHER, SELFPAY ==
[2023-06-27 13:35] VITALS: BP 138/69; PULSE 56; RESP 16; TEMP 36.6; O2SAT 98
[2023-06-27 13:49] LABS: Basophils % 0.3 %; Eosinophils # 0.3 10^3/uL (0.0-0.8); Eosinophils % 3.7 %; Hematocrit 40.3 % (37-53); Lymphocytes # 2.9 10^3/uL (0.8-4.8); Lymphocytes % 32.1 %; Mean Corpuscular HGB Conc 34.5 g/dL (30-55); Mean Corpuscular Hemoglobin 30.8 pg (27-33); Mean Corpuscular Volume 89.2 fl (82-101); Mean Platelet Volume 10.1 fL (7.4-10.4); Monocytes # 0.8 10^3/uL (0.2-0.9); Monocytes % 8.9 %; Neutrophils # 4.89 10^3/uL (1.8-7.7); Neutrophils % 54.6 %; Nucleated Red Blood Cells % 0 %; Platelet Count 314 10^3/cmm (157-399); Red Blood Count 4.52 10^6/uL (3.85-5.65); Red Cell Distribution Width 12.8 % (12.1-15.1); White Blood Count 8.97 10^3/uL (3.29-11.43)
[2023-06-27 14:13] LABS: Alanine Aminotransferase 14 U/L (0-41); Albumin Level 3.9 g/dL (3.5-5.2); Alkaline Phosphatase 91 U/L (40-130); Blood Urea Nitrogen 14 mg/dL (8-23); Carbon Dioxide 27 mmol/L (22-29); Chloride 98 mmol/L (98-107); Glucose 179 mg/dL (65-115); Osmolality Calculated 289 mOsm/kg (285-295); Sodium 137 mmol/L (136-145); Total Bilirubin 0.7 mg/dL (0.15-1.2); Total Protein 6.9 g/dL (6.6-8.7)
[2023-06-27 14:18] LABS: Prostate Specific Antigen < 0.014 ng/mL (0-4)
[2023-06-27 14:20] LABS: Anion Gap 16.1 (5-19); Aspartate Amino Transferase 17 U/L (0-40); Potassium 4.1 mmol/L (3.5-5.1)
[2023-06-27 14:59] LABS: Testosterone Total 2.5 ng/dL (193-740)
[2023-06-27] MEDS: leuprolide 22.5 mg Kit IM (15:07)
== END 2023-07-24 23:59 | disposition home or self-care (01) ==
PROVIDERS: Internal Medicine Medical Oncology; PCP Family Medicine; Visit Provider Internal Medicine Hematology & Oncology
DX: C61 Malignant neoplasm of prostate (principal); C79.51 Secondary malignant neoplasm of bone; Z79.899 Other long term (current) drug therapy; Z51.11 Encounter for antineoplastic chemotherapy
CPT/HCPCS: 36415; 80053; 84153; 84403; 85025; 96402; 99214; J9217

== ENCOUNTER → 2023-07-24 10:26 | Outpatient (BNVA) | payer MEDICARE, OTHER, SELFPAY | PROVIDERS: PCP Family Medicine; Visit Provider Internal Medicine | DX: E11.40 Type 2 diabetes mellitus with diabetic neuropathy, unspecified (principal); E11.65 Type 2 diabetes mellitus with hyperglycemia; E78.2 Mixed hyperlipidemia; B35.1 Tinea unguium; Z79.84 Long term (current) use of oral hypoglycemic drugs; Z79.4 Long term (current) use of insulin | CPT/HCPCS: 36415; 80053; 80061; 82044; 83036; 99214 ==

== ENCOUNTER 2023-08-01 12:47 | Oncology outpatient (recurring) (ONCR) | payer MEDICARE, OTHER, SELFPAY ==
[2023-08-01 13:06] VITALS: BP 169/70; PULSE 72; TEMP 36.3; O2SAT 97
[2023-08-01] MEDS: denosumab 120 mg SDV SUBCUT (13:15)
== END 2023-08-22 23:59 | disposition home or self-care (01) ==
LOC: ONCMED 12:48
PROVIDERS: PCP Family Medicine; Visit Provider Internal Medicine Hematology & Oncology
DX: Z51.11 Encounter for antineoplastic chemotherapy (principal); C61 Malignant neoplasm of prostate; C79.51 Secondary malignant neoplasm of bone; Z79.899 Other long term (current) drug therapy; K80.20 Calculus of gallbladder without cholecystitis without obstruction; K76.0 Fatty (change of) liver, not elsewhere classified; N28.89 Other specified disorders of kidney and ureter; Z79.818 Long term (current) use of other agents affecting estrogen receptors and estrogen levels; L60.3 Nail dystrophy; E11.40 Type 2 diabetes mellitus with diabetic neuropathy, unspecified; E11.65 Type 2 diabetes mellitus with hyperglycemia; G62.9 Polyneuropathy, unspecified; Z79.84 Long term (current) use of oral hypoglycemic drugs; Z79.4 Long term (current) use of insulin
CPT/HCPCS: 11721; 96372; 99203; J0897

== ENCOUNTER 2023-10-07 11:22 | Oncology outpatient (recurring) (ONCR) | payer MEDICARE, OTHER, SELFPAY ==
[2023-10-07 12:37] LABS: Basophils % 0.5 %; Eosinophils # 0.2 10^3/uL (0.0-0.8); Eosinophils % 2.5 %; Lymphocytes # 1.8 10^3/uL (0.8-4.8); Lymphocytes % 21.6 %; Mean Corpuscular HGB Conc 33.8 g/dL (30-55); Mean Corpuscular Hemoglobin 30.8 pg (27-33); Mean Corpuscular Volume 91.3 fl (82-101); Mean Platelet Volume 10.5 fL (7.4-10.4); Monocytes % 11.9 %; Neutrophils # 5.11 10^3/uL (1.8-7.7); Neutrophils % 63.1 %; Nucleated Red Blood Cells % 0 %; Platelet Count 307 10^3/cmm (157-399); Red Blood Count 4.38 10^6/uL (3.85-5.65); Red Cell Distribution Width 12.6 % (12.1-15.1); White Blood Count 8.09 10^3/uL (3.29-11.43)
[2023-10-07 13:23] LABS: Alanine Aminotransferase 14 U/L (0-41); Albumin Level 3.8 g/dL (3.5-5.2); Alkaline Phosphatase 87 U/L (40-130); Anion Gap 17.8 (5-19); Aspartate Amino Transferase 14 U/L (0-40); Blood Urea Nitrogen 18 mg/dL (8-23); Calcium 9.2 mg/dL (8.5-10.5); Carbon Dioxide 24 mmol/L (22-29); Chloride 99 mmol/L (98-107); Creatinine Clr Calc Pharmacy 90.6413; Globulin 2.8 g/dL (1.3-4.6); Glucose 269 mg/dL (65-115); Osmolality Calculated 295 mOsm/kg (285-295); Potassium 3.8 mmol/L (3.5-5.1); Sodium 137 mmol/L (136-145); Total Bilirubin 0.7 mg/dL (0.15-1.2); Total Protein 6.6 g/dL (6.6-8.7)
[2023-10-07 13:49] LABS: Testosterone Total 2.5 ng/dL (193-740)
[2023-10-07 13:51] LABS: Prostate Specific Antigen < 0.014 ng/mL (0-4)
[2023-10-07] MEDS: leuprolide 22.5 mg Kit IM (14:41)
== END 2023-10-22 23:59 | disposition home or self-care (01) ==
PROVIDERS: Internal Medicine Medical Oncology; PCP Family Medicine; Visit Provider Internal Medicine Hematology & Oncology
DX: Z51.11 Encounter for antineoplastic chemotherapy (principal); C61 Malignant neoplasm of prostate; C79.51 Secondary malignant neoplasm of bone; Z79.899 Other long term (current) drug therapy; K80.20 Calculus of gallbladder without cholecystitis without obstruction; K76.0 Fatty (change of) liver, not elsewhere classified; N28.89 Other specified disorders of kidney and ureter; Z79.818 Long term (current) use of other agents affecting estrogen receptors and estrogen levels; L60.3 Nail dystrophy; E11.40 Type 2 diabetes mellitus with diabetic neuropathy, unspecified; E11.65 Type 2 diabetes mellitus with hyperglycemia; G62.9 Polyneuropathy, unspecified; Z79.84 Long term (current) use of oral hypoglycemic drugs; Z79.4 Long term (current) use of insulin; Z53.9 Procedure and treatment not carried out, unspecified reason
CPT/HCPCS: 36415; 80053; 84153; 84403; 85025; 96402; 99213; J9217

== ENCOUNTER → 2023-10-25 11:35 | Outpatient (BNVA) | payer MEDICARE, OTHER, SELFPAY | PROVIDERS: PCP Family Medicine; Visit Provider Internal Medicine | DX: E11.40 Type 2 diabetes mellitus with diabetic neuropathy, unspecified (principal); E11.65 Type 2 diabetes mellitus with hyperglycemia; E78.2 Mixed hyperlipidemia; I63.9 Cerebral infarction, unspecified; B35.1 Tinea unguium; Z79.84 Long term (current) use of oral hypoglycemic drugs; Z79.4 Long term (current) use of insulin | CPT/HCPCS: 99214 ==

== ENCOUNTER → 2023-12-05 11:31 | Outpatient (BNVA) | payer MEDICARE, OTHER, SELFPAY | PROVIDERS: PCP Family Medicine; Visit Provider Internal Medicine | DX: E11.40 Type 2 diabetes mellitus with diabetic neuropathy, unspecified (principal); E11.65 Type 2 diabetes mellitus with hyperglycemia; E78.2 Mixed hyperlipidemia; I63.9 Cerebral infarction, unspecified; B35.1 Tinea unguium | CPT/HCPCS: 99214 ==

== ENCOUNTER 2023-12-30 10:53 | Oncology outpatient (recurring) (ONCR) | payer MEDICARE, OTHER, SELFPAY ==
[2023-12-30 11:10] LABS: Basophils % 0.4 %; Eosinophils # 0.8 10^3/uL (0.0-0.8); Eosinophils % 8.8 %; Hematocrit 41.4 % (37-53); Lymphocytes # 3.1 10^3/uL (0.8-4.8); Lymphocytes % 33.6 %; Mean Corpuscular HGB Conc 33.6 g/dL (30-55); Mean Corpuscular Hemoglobin 30.2 pg (27-33); Mean Corpuscular Volume 89.8 fl (82-101); Monocytes # 1.2 10^3/uL (0.2-0.9); Monocytes % 12.7 %; Neutrophils # 4.03 10^3/uL (1.8-7.7); Neutrophils % 44.2 %; Nucleated Red Blood Cells % 0 %; Platelet Count 336 10^3/cmm (157-399); Red Blood Count 4.61 10^6/uL (3.85-5.65); Red Cell Distribution Width 12.1 % (12.1-15.1); White Blood Count 9.12 10^3/uL (3.29-11.43)
[2023-12-30 11:39] LABS: Alanine Aminotransferase 12 U/L (0-41); Albumin Level 3.9 g/dL (3.5-5.2); Alkaline Phosphatase 106 U/L (40-130); Aspartate Amino Transferase 14 U/L (0-40); Blood Urea Nitrogen 19 mg/dL (8-23); Calcium 9.1 mg/dL (8.5-10.5); Carbon Dioxide 29 mmol/L (22-29); Chloride 99 mmol/L (98-107); Globulin 3.2 g/dL (1.3-4.6); Glucose 270 mg/dL (65-115); Osmolality Calculated 300 mOsm/kg (285-295); Prostate Specific Antigen < 0.014 ng/mL (0-4); Sodium 139 mmol/L (136-145); Testosterone Total 2.5 ng/dL (193-740); Total Bilirubin 0.4 mg/dL (0.15-1.2); Total Protein 7.1 g/dL (6.6-8.7)
[2023-12-30 11:41] LABS: Anion Gap 14.8 (5-19); Potassium 3.8 mmol/L (3.5-5.1)
[2023-12-30] MEDS: leuprolide 22.5 mg Kit IM (14:37)
== END 2024-01-22 23:59 | disposition home or self-care (01) ==
PROVIDERS: Nurse Practitioner Family; PCP Family Medicine; Visit Provider Internal Medicine Hematology & Oncology
DX: Z51.11 Encounter for antineoplastic chemotherapy (principal); C61 Malignant neoplasm of prostate; C79.51 Secondary malignant neoplasm of bone; Z79.899 Other long term (current) drug therapy; K92.1 Melena; R53.1 Weakness; Z79.818 Long term (current) use of other agents affecting estrogen receptors and estrogen levels; E11.40 Type 2 diabetes mellitus with diabetic neuropathy, unspecified; E11.65 Type 2 diabetes mellitus with hyperglycemia; G62.9 Polyneuropathy, unspecified; Z79.84 Long term (current) use of oral hypoglycemic drugs; Z79.4 Long term (current) use of insulin
CPT/HCPCS: 36415; 80053; 84153; 84403; 85025; 96402; 99213; J9217

== ENCOUNTER 2024-01-28 13:49 | Oncology outpatient (recurring) (ONCR) | payer MEDICARE, OTHER, SELFPAY ==
[2024-01-28 12:24] LABS: Estmated Average Glucose 232; Hemoglobin A1C 9.7 % (4.0-6.0)
[2024-01-28 12:31] LABS: Alanine Aminotransferase 12 U/L (0-41); Albumin Level 3.9 g/dL (3.5-5.2); Alkaline Phosphatase 94 U/L (40-130); Aspartate Amino Transferase 15 U/L (0-40); Blood Urea Nitrogen 14 mg/dL (8-23); Carbon Dioxide 27 mmol/L (22-29); Chloride 99 mmol/L (98-107); Chol HDL Ratio 3.38 mg/dL (1.0-5.00); Cholesterol 152 mg/dL (0-200); Glucose 195 mg/dL (65-115); HDL Cholesterol 45 mg/dL (60-100); LDL Cholesterol Calculated 74 mg/dL (50-129); LDL HDL Ratio 1.64 RATIO (0.00-3.22); Osmolality Calculated 292 mOsm/kg (285-295); Sodium 138 mmol/L (136-145); Total Bilirubin 0.6 mg/dL (0.15-1.2); Total Protein 6.9 g/dL (6.6-8.7); Triglycerides 164 mg/dL (0-150)
[2024-01-28 12:34] LABS: Anion Gap 15.8 (5-19); Potassium 3.8 mmol/L (3.5-5.1)
[2024-01-28 12:36] LABS: Creatinine Urine, Random 36 mg/dL (39-259); Microalbumin Random Urine 3 ug/dL (0-20)
[2024-01-28 12:39] LABS: Microalbum Creatinine Ratio Ur 83 mg/dL (0-20)
[2024-01-28] MEDS: denosumab 120 mg SDV SUBCUT (15:02)
== END 2024-02-22 23:55 | disposition home or self-care (01) ==
PROVIDERS: Internal Medicine; PCP Family Medicine; Visit Provider Internal Medicine Medical Oncology
DX: Z79.4 Long term (current) use of insulin; Z51.11 Encounter for antineoplastic chemotherapy; Z79.899 Other long term (current) drug therapy; C61 Malignant neoplasm of prostate; E11.40 Type 2 diabetes mellitus with diabetic neuropathy, unspecified; E11.65 Type 2 diabetes mellitus with hyperglycemia; E78.2 Mixed hyperlipidemia
CPT/HCPCS: 36415; 80053; 80061; 82044; 83036; 96372; J0897

== ENCOUNTER → 2024-02-03 11:35 | Outpatient (BNVA) | payer MEDICARE, OTHER, SELFPAY | PROVIDERS: PCP Family Medicine; Visit Provider Internal Medicine | DX: E11.40 Type 2 diabetes mellitus with diabetic neuropathy, unspecified (principal); E11.65 Type 2 diabetes mellitus with hyperglycemia; E78.2 Mixed hyperlipidemia; I63.9 Cerebral infarction, unspecified; B35.1 Tinea unguium; Z79.4 Long term (current) use of insulin; Z79.84 Long term (current) use of oral hypoglycemic drugs | CPT/HCPCS: 99214 ==

== ENCOUNTER 2024-03-23 13:05 | Oncology outpatient (recurring) (ONCR) | payer MEDICARE, OTHER, SELFPAY ==
[2024-03-23 13:31] LABS: Basophils # 0.1 10^3/uL (0.0-0.1); Basophils % 0.5 %; Eosinophils # 0.3 10^3/uL (0.0-0.8); Hematocrit 38.6 % (37-53); Lymphocytes # 2.6 10^3/uL (0.8-4.8); Lymphocytes % 26.6 %; Mean Corpuscular HGB Conc 33.9 g/dL (30-55); Mean Corpuscular Hemoglobin 30.3 pg (27-33); Mean Corpuscular Volume 89.1 fl (82-101); Monocytes # 1.1 10^3/uL (0.2-0.9); Monocytes % 10.8 %; Neutrophils # 5.86 10^3/uL (1.8-7.7); Neutrophils % 58.9 %; Nucleated Red Blood Cells % 0 %; Platelet Count 268 10^3/cmm (157-399); Red Blood Count 4.33 10^6/uL (3.85-5.65); Red Cell Distribution Width 12.7 % (12.1-15.1); White Blood Count 9.94 10^3/uL (3.29-11.43)
[2024-03-23 13:57] LABS: Alanine Aminotransferase 11 U/L (0-41); Albumin Level 3.6 g/dL (3.5-5.2); Alkaline Phosphatase 87 U/L (40-130); Anion Gap 13.1 (5-19); Aspartate Amino Transferase 14 U/L (0-40); Blood Urea Nitrogen 16 mg/dL (8-23); Calcium 8.3 mg/dL (8.5-10.5); Carbon Dioxide 28 mmol/L (22-29); Chloride 103 mmol/L (98-107); Globulin 2.8 g/dL (1.3-4.6); Glucose 254 mg/dL (65-115); Osmolality Calculated 300 mOsm/kg (285-295); Potassium 4.1 mmol/L (3.5-5.1); Sodium 140 mmol/L (136-145); Testosterone Total 2.5 ng/dL (193-740); Total Bilirubin 0.5 mg/dL (0.15-1.2); Total Protein 6.4 g/dL (6.6-8.7)
[2024-03-23 13:58] LABS: Prostate Specific Antigen < 0.014 ng/mL (0-4)
[2024-03-23] MEDS: leuprolide 22.5 mg Kit IM (15:39)
[2024-03-23 15:54] LABS: Estmated Average Glucose 249; Hemoglobin A1C 10.3 % (4.0-6.0)
== END 2024-03-23 23:59 | disposition home or self-care (01) ==
PROVIDERS: Nurse Practitioner Family; PCP Family Medicine; Visit Provider Internal Medicine Hematology & Oncology
DX: Z79.4 Long term (current) use of insulin (principal); Z51.11 Encounter for antineoplastic chemotherapy; Z79.899 Other long term (current) drug therapy; C61 Malignant neoplasm of prostate; E11.40 Type 2 diabetes mellitus with diabetic neuropathy, unspecified; E11.65 Type 2 diabetes mellitus with hyperglycemia; E78.2 Mixed hyperlipidemia; C79.51 Secondary malignant neoplasm of bone
CPT/HCPCS: 36415; 80053; 83036; 84153; 84403; 85025; 96402; 99214; J9217

== ENCOUNTER → 2024-06-08 11:00 | Outpatient (BNVA) | payer MEDICARE, OTHER, SELFPAY | PROVIDERS: PCP Family Medicine; Visit Provider Internal Medicine | DX: E11.40 Type 2 diabetes mellitus with diabetic neuropathy, unspecified (principal); E11.65 Type 2 diabetes mellitus with hyperglycemia; E78.2 Mixed hyperlipidemia; I63.9 Cerebral infarction, unspecified; B35.1 Tinea unguium; Z79.84 Long term (current) use of oral hypoglycemic drugs; Z79.4 Long term (current) use of insulin | CPT/HCPCS: 99214 ==

== ENCOUNTER 2024-06-15 13:20 | Oncology outpatient (recurring) (ONCR) | payer MEDICARE, OTHER, SELFPAY ==
[2024-06-15 13:41] LABS: Basophils % 0.4 %; Eosinophils # 0.3 10^3/uL (0.0-0.8); Eosinophils % 3.2 %; Hematocrit 39.6 % (37-53); Lymphocytes # 2.4 10^3/uL (0.8-4.8); Lymphocytes % 29.9 %; Mean Corpuscular HGB Conc 34.3 g/dL (30-55); Mean Corpuscular Hemoglobin 30.6 pg (27-33); Mean Corpuscular Volume 89.2 fl (82-101); Monocytes # 0.8 10^3/uL (0.2-0.9); Monocytes % 9.7 %; Neutrophils # 4.59 10^3/uL (1.8-7.7); Neutrophils % 56.6 %; Nucleated Red Blood Cells % 0 %; Platelet Count 306 10^3/cmm (157-399); Red Blood Count 4.44 10^6/uL (3.85-5.65); Red Cell Distribution Width 12.4 % (12.1-15.1); White Blood Count 8.12 10^3/uL (3.29-11.43)
[2024-06-15 14:09] LABS: Alanine Aminotransferase 13 U/L (0-41); Albumin Level 3.9 g/dL (3.5-5.2); Alkaline Phosphatase 98 U/L (40-130); Anion Gap 19.1 (5-19); Aspartate Amino Transferase 21 U/L (0-40); Blood Urea Nitrogen 17 mg/dL (8-23); Calcium 8.5 mg/dL (8.5-10.5); Carbon Dioxide 25 mmol/L (22-29); Chloride 100 mmol/L (98-107); Creatinine Clr Calc Pharmacy 72.9677; Globulin 2.9 g/dL (1.3-4.6); Glucose 409 mg/dL (65-115); Osmolality Calculated 309 mOsm/kg (285-295); Potassium 4.1 mmol/L (3.5-5.1); Sodium 140 mmol/L (136-145); Testosterone Total 2.5 ng/dL (193-740); Total Bilirubin 0.4 mg/dL (0.15-1.2); Total Protein 6.8 g/dL (6.6-8.7)
[2024-06-15 14:12] LABS: Prostate Specific Antigen < 0.014 ng/mL (0-4)
[2024-06-15] MEDS: leuprolide 22.5 mg Kit IM ×2 (15:00→15:18)
== END 2024-06-23 23:59 | disposition home or self-care (01) ==
PROVIDERS: Nurse Practitioner Family; PCP Family Medicine; Visit Provider Internal Medicine Hematology & Oncology
DX: Z79.4 Long term (current) use of insulin (principal); Z51.11 Encounter for antineoplastic chemotherapy; Z79.899 Other long term (current) drug therapy; C61 Malignant neoplasm of prostate; E11.40 Type 2 diabetes mellitus with diabetic neuropathy, unspecified; E11.65 Type 2 diabetes mellitus with hyperglycemia; C79.51 Secondary malignant neoplasm of bone; Z79.84 Long term (current) use of oral hypoglycemic drugs
CPT/HCPCS: 36415; 80053; 84153; 84403; 85025; 96402; 99214; J9217

== ENCOUNTER → 2024-08-03 12:46 | Outpatient (BNVA) | payer MEDICARE, OTHER, SELFPAY | PROVIDERS: PCP Family Medicine; Visit Provider Podiatrist Foot & Ankle Surgery | DX: E11.40 Type 2 diabetes mellitus with diabetic neuropathy, unspecified (principal); L60.3 Nail dystrophy; E11.65 Type 2 diabetes mellitus with hyperglycemia; G62.9 Polyneuropathy, unspecified; Z79.4 Long term (current) use of insulin; Z79.84 Long term (current) use of oral hypoglycemic drugs | CPT/HCPCS: 11721 ==

== ENCOUNTER 2024-09-07 12:27 | Oncology outpatient (recurring) (ONCR) | payer MEDICARE, OTHER, SELFPAY ==
[2024-09-07 12:58] LABS: Basophils % 0.5 %; Eosinophils # 0.3 10^3/uL (0.0-0.8); Hematocrit 39.5 % (37-53); Lymphocytes % 33.6 %; Mean Corpuscular HGB Conc 33.9 g/dL (30-55); Mean Corpuscular Hemoglobin 30.2 pg (27-33); Mean Platelet Volume 10.2 fL (7.4-10.4); Monocytes # 0.9 10^3/uL (0.2-0.9); Monocytes % 10.3 %; Neutrophils # 4.59 10^3/uL (1.8-7.7); Neutrophils % 52.3 %; Nucleated Red Blood Cells % 0 %; Platelet Count 299 10^3/cmm (157-399); Red Blood Count 4.44 10^6/uL (3.85-5.65); Red Cell Distribution Width 12.4 % (12.1-15.1); White Blood Count 8.77 10^3/uL (3.29-11.43)
[2024-09-07 13:36] LABS: Alanine Aminotransferase 11 U/L (0-41); Alkaline Phosphatase 99 U/L (40-130); Aspartate Amino Transferase 15 U/L (0-40); Blood Urea Nitrogen 21 mg/dL (8-23); Calcium 9.3 mg/dL (8.5-10.5); Carbon Dioxide 28 mmol/L (22-29); Chloride 100 mmol/L (98-107); Globulin 2.7 g/dL (1.3-4.6); Glucose 242 mg/dL (65-115); Osmolality Calculated 295 mOsm/kg (285-295); Sodium 137 mmol/L (136-145); Total Bilirubin 0.6 mg/dL (0.15-1.2); Total Protein 6.7 g/dL (6.6-8.7)
[2024-09-07 13:37] LABS: Prostate Specific Antigen < 0.014 ng/mL (0-4); Testosterone Total < 2.5 ng/dL (193-740)
[2024-09-07 13:40] LABS: Creatinine Urine, Random 42 mg/dL (39-259); Microalbumin Random Urine 4 ug/dL (0-20)
[2024-09-07 13:43] LABS: Estmated Average Glucose 232; Hemoglobin A1C 9.7 % (4.0-6.0)
[2024-09-07 13:44] LABS: Microalbum Creatinine Ratio Ur 95 mg/dL (0-20)
[2024-09-07 14:41] LABS: Chol HDL Ratio 3.24 mg/dL (1.0-5.00); Cholesterol 162 mg/dL (0-200); HDL Cholesterol 50 mg/dL (60-100); LDL Cholesterol Calculated 83 mg/dL (50-129); LDL HDL Ratio 1.66 RATIO (0.00-3.22); Triglycerides 144 mg/dL (0-150)
[2024-09-07] MEDS: denosumab 120 mg SDV SUBCUT (15:11)
[2024-09-07] MEDS: leuprolide 22.5 mg Kit IM (15:13)
== END 2024-09-21 23:59 | disposition home or self-care (01) ==
PROVIDERS: Internal Medicine; Internal Medicine Medical Oncology; PCP Family Medicine; Visit Provider Internal Medicine Hematology & Oncology
DX: Z51.11 Encounter for antineoplastic chemotherapy (principal); C61 Malignant neoplasm of prostate; C79.51 Secondary malignant neoplasm of bone; E78.2 Mixed hyperlipidemia; E11.40 Type 2 diabetes mellitus with diabetic neuropathy, unspecified; E11.65 Type 2 diabetes mellitus with hyperglycemia; Z79.818 Long term (current) use of other agents affecting estrogen receptors and estrogen levels; Z79.899 Other long term (current) drug therapy
CPT/HCPCS: 36415; 80053; 80061; 82044; 83036; 84153; 84403; 85025; 96372; 96402; 99214; J0897; J9217

== ENCOUNTER → 2024-09-10 10:52 | Outpatient (BNVA) | payer MEDICARE, OTHER, SELFPAY | PROVIDERS: PCP Family Medicine; Visit Provider Internal Medicine | DX: E11.40 Type 2 diabetes mellitus with diabetic neuropathy, unspecified (principal); E11.65 Type 2 diabetes mellitus with hyperglycemia; B35.1 Tinea unguium; I63.9 Cerebral infarction, unspecified; E78.2 Mixed hyperlipidemia | CPT/HCPCS: 99214 ==

== ENCOUNTER → 2024-10-06 12:57 | Outpatient (BNVA) | payer MEDICARE, OTHER, SELFPAY | PROVIDERS: PCP Family Medicine; Visit Provider Podiatrist Foot & Ankle Surgery | DX: E11.8 Type 2 diabetes mellitus with unspecified complications (principal); L60.3 Nail dystrophy; E11.40 Type 2 diabetes mellitus with diabetic neuropathy, unspecified; E11.65 Type 2 diabetes mellitus with hyperglycemia; G62.9 Polyneuropathy, unspecified; Z79.84 Long term (current) use of oral hypoglycemic drugs; Z79.4 Long term (current) use of insulin | CPT/HCPCS: 11721; 99213 ==

== ENCOUNTER 2024-11-30 12:24 | Oncology outpatient (recurring) (ONCR) | payer MEDICARE, OTHER, SELFPAY ==
[2024-11-30 12:52] LABS: Basophils % 0.4 %; Eosinophils # 0.3 10^3/uL (0.0-0.8); Eosinophils % 4.4 %; Hematocrit 38.9 % (37-53); Lymphocytes # 2.7 10^3/uL (0.8-4.8); Lymphocytes % 36.9 %; Mean Corpuscular HGB Conc 34.7 g/dL (30-55); Mean Corpuscular Hemoglobin 31.1 pg (27-33); Mean Corpuscular Volume 89.6 fl (82-101); Mean Platelet Volume 10.4 fL (7.4-10.4); Monocytes # 0.8 10^3/uL (0.2-0.9); Monocytes % 10.5 %; Neutrophils # 3.42 10^3/uL (1.8-7.7); Neutrophils % 47.5 %; Nucleated Red Blood Cells % 0 %; Platelet Count 267 10^3/cmm (157-399); Red Blood Count 4.34 10^6/uL (3.85-5.65); Red Cell Distribution Width 12.5 % (12.1-15.1); White Blood Count 7.21 10^3/uL (3.29-11.43)
[2024-11-30 13:09] LABS: Estmated Average Glucose 192; Hemoglobin A1C 8.3 % (4.0-6.0)
[2024-11-30 13:14] LABS: Creatinine Urine, Random 48 mg/dL (39-259); Microalbum Creatinine Ratio Ur 125 mg/dL (0-20); Microalbumin Random Urine 6 ug/dL (0-20)
[2024-11-30 13:23] LABS: Alanine Aminotransferase 11 U/L (0-41); Alkaline Phosphatase 64 U/L (40-130); Anion Gap 17.8 (5-19); Aspartate Amino Transferase 13 U/L (0-40); Blood Urea Nitrogen 24 mg/dL (8-23); Calcium 8.8 mg/dL (8.5-10.5); Carbon Dioxide 25 mmol/L (22-29); Chloride 103 mmol/L (98-107); Chol HDL Ratio 3.39 mg/dL (1.0-5.00); Cholesterol 166 mg/dL (0-200); Creatinine Clr Calc Pharmacy 89.4237; Globulin 2.8 g/dL (1.3-4.6); Glucose 194 mg/dL (65-115); HDL Cholesterol 49 mg/dL (60-100); LDL Cholesterol Calculated 95 mg/dL (50-129); LDL HDL Ratio 1.94 RATIO (0.00-3.22); Osmolality Calculated 303 mOsm/kg (285-295); Potassium 3.8 mmol/L (3.5-5.1); Prostate Specific Antigen < 0.014 ng/mL (0-4); Sodium 142 mmol/L (136-145); Total Bilirubin 0.5 mg/dL (0.15-1.2); Total Protein 6.8 g/dL (6.6-8.7); Triglycerides 110 mg/dL (0-150)
[2024-11-30 14:21] LABS: Testosterone Total < 2.5 ng/dL (193-740)
[2024-11-30] MEDS: leuprolide 22.5 mg Kit IM (14:32)
== END 2024-12-21 23:59 | disposition home or self-care (01) ==
PROVIDERS: Internal Medicine; Nurse Practitioner Family; PCP Family Medicine; Visit Provider Internal Medicine Hematology & Oncology
DX: Z51.11 Encounter for antineoplastic chemotherapy (principal); C61 Malignant neoplasm of prostate; C79.51 Secondary malignant neoplasm of bone; R03.0 Elevated blood-pressure reading, without diagnosis of hypertension; E11.40 Type 2 diabetes mellitus with diabetic neuropathy, unspecified; E11.65 Type 2 diabetes mellitus with hyperglycemia; Z79.818 Long term (current) use of other agents affecting estrogen receptors and estrogen levels; Z79.899 Other long term (current) drug therapy
CPT/HCPCS: 36415; 80053; 80061; 82044; 83036; 84153; 84403; 85025; 96402; 99214; J9217

== ENCOUNTER → 2024-12-03 12:06 | Outpatient (BNVA) | payer MEDICARE, OTHER, SELFPAY | PROVIDERS: PCP Family Medicine; Visit Provider Internal Medicine | DX: E11.40 Type 2 diabetes mellitus with diabetic neuropathy, unspecified (principal); E11.65 Type 2 diabetes mellitus with hyperglycemia; E78.2 Mixed hyperlipidemia | CPT/HCPCS: 99214 ==

== ENCOUNTER → 2024-12-10 12:55 | Outpatient (BNVA) | payer MEDICARE, OTHER, SELFPAY | PROVIDERS: PCP Family Medicine; Visit Provider Podiatrist Foot & Ankle Surgery | DX: E11.40 Type 2 diabetes mellitus with diabetic neuropathy, unspecified (principal); L60.3 Nail dystrophy; E11.65 Type 2 diabetes mellitus with hyperglycemia; G62.9 Polyneuropathy, unspecified; Z79.4 Long term (current) use of insulin; Z79.84 Long term (current) use of oral hypoglycemic drugs | CPT/HCPCS: 11721 ==

== ENCOUNTER → 2024-12-31 10:20 | Outpatient (BNVA) | payer MEDICARE, OTHER, SELFPAY | PROVIDERS: PCP Family Medicine; Visit Provider Internal Medicine | DX: E11.40 Type 2 diabetes mellitus with diabetic neuropathy, unspecified (principal); E11.65 Type 2 diabetes mellitus with hyperglycemia; E78.2 Mixed hyperlipidemia; I63.9 Cerebral infarction, unspecified; B35.1 Tinea unguium; Z79.4 Long term (current) use of insulin; Z79.84 Long term (current) use of oral hypoglycemic drugs | CPT/HCPCS: 99214 ==

== ENCOUNTER → 2025-03-04 12:34 | Outpatient (BNVA) | payer MEDICARE, OTHER, SELFPAY | PROVIDERS: PCP Family Medicine; Visit Provider Internal Medicine | DX: C61 Malignant neoplasm of prostate (principal); C79.51 Secondary malignant neoplasm of bone; E11.40 Type 2 diabetes mellitus with diabetic neuropathy, unspecified; B35.1 Tinea unguium; E78.2 Mixed hyperlipidemia; I63.9 Cerebral infarction, unspecified; E11.65 Type 2 diabetes mellitus with hyperglycemia; G62.9 Polyneuropathy, unspecified | CPT/HCPCS: 36415; 80053; 80061; 82044; 82947; 83036; 84153; 84403; 84681; 85025; 86337; 86341 ==

== ENCOUNTER 2025-03-08 14:03 | Oncology outpatient (recurring) (ONCR) | payer MEDICARE, OTHER, SELFPAY ==
[2025-03-08 14:16] LABS: Hematocrit 35.8 % (37-53); Hemoglobin 11.80 g/dL (11.27-16.99); Mean Corpuscular HGB Conc 33.0 g/dL (30-55); Mean Corpuscular Hemoglobin 29.1 pg (27-33); Mean Corpuscular Volume 88.2 fl (82-101); Nucleated Red Blood Cells % 0 %; Platelet Count 261 10^3/cmm (157-399); Red Blood Count 4.06 10^6/uL (3.85-5.65); White Blood Count 5.16 10^3/uL (3.29-11.43)
[2025-03-08 14:43] LABS: Alanine Aminotransferase 17 U/L (0-41); Albumin Level 3.8 g/dL (3.5-5.2); Alkaline Phosphatase 106 U/L (40-130); Anion Gap 16.2 (5-19); Aspartate Amino Transferase 20 U/L (0-40); Blood Urea Nitrogen 13 mg/dL (8-23); Calcium 8.7 mg/dL (8.5-10.5); Carbon Dioxide 25 mmol/L (22-29); Chloride 102 mmol/L (98-107); Globulin 3.1 g/dL (1.3-4.6); Glucose 321 mg/dL (65-115); Osmolality Calculated 300 mOsm/kg (285-295); Potassium 4.2 mmol/L (3.5-5.1); Sodium 139 mmol/L (136-145); Total Protein 6.9 g/dL (6.6-8.7)
[2025-03-08 14:44] LABS: Prostate Specific Antigen < 0.014 ng/mL (0-4)
[2025-03-08 14:50] LABS: Slide Review Slide Review Perform
[2025-03-08] MEDS: denosumab 120 mg SDV (Infusion Clinic Only) SUBCUT (15:52)
[2025-03-08] MEDS: leuprolide 22.5 mg Kit IM (15:52)
== END 2025-03-23 23:59 | disposition home or self-care (01) ==
PROVIDERS: PCP Family Medicine; Visit Provider Internal Medicine Medical Oncology
DX: Z51.11 Encounter for antineoplastic chemotherapy (principal); C61 Malignant neoplasm of prostate; C79.51 Secondary malignant neoplasm of bone; R03.0 Elevated blood-pressure reading, without diagnosis of hypertension; E11.40 Type 2 diabetes mellitus with diabetic neuropathy, unspecified; K92.1 Melena; Z92.3 Personal history of irradiation; Z79.899 Other long term (current) drug therapy
CPT/HCPCS: 36415; 80053; 84153; 84403; 85025; 96372; 96402; 99214; J0897; J9217

== ENCOUNTER 2025-04-01 08:10 | Outpatient (CLI) | payer MEDICARE, OTHER, SELFPAY ==
[2025-04-01 09:09] LABS: Estmated Average Glucose 252; Hemoglobin A1C 10.4 % (4.0-6.0)
[2025-04-01 09:17] LABS: Creatinine Urine, Random 61 mg/dL (39-259)
[2025-04-01 09:18] LABS: Alanine Aminotransferase 16 U/L (0-41); Albumin Level 3.9 g/dL (3.5-5.2); Alkaline Phosphatase 98 U/L (40-130); Anion Gap 13.8 (5-19); Aspartate Amino Transferase 18 U/L (0-40); Blood Urea Nitrogen 18 mg/dL (8-23); Calcium 8.8 mg/dL (8.5-10.5); Carbon Dioxide 29 mmol/L (22-29); Chloride 100 mmol/L (98-107); Cholesterol 151 mg/dL (0-200); Globulin 3.0 g/dL (1.3-4.6); Glucose 184 mg/dL (65-115); HDL Cholesterol 47 mg/dL (60-100); Osmolality Calculated 295 mOsm/kg (285-295); Potassium 3.8 mmol/L (3.5-5.1); Sodium 139 mmol/L (136-145); Total Protein 6.9 g/dL (6.6-8.7); Triglycerides 82 mg/dL (0-150)
[2025-04-01 09:21] LABS: Microalbum Creatinine Ratio Ur 230 mg/dL (0-20)
== END 2025-04-01 08:11 | disposition home or self-care (01) ==
LOC: LAB 08:12
PROVIDERS: PCP Family Medicine; Visit Provider Internal Medicine
DX: B35.1 Tinea unguium (principal); E78.2 Mixed hyperlipidemia; I63.9 Cerebral infarction, unspecified; E11.40 Type 2 diabetes mellitus with diabetic neuropathy, unspecified; E11.65 Type 2 diabetes mellitus with hyperglycemia
CPT/HCPCS: 36415; 80053; 80061; 82044; 83036

== ENCOUNTER → 2025-04-15 13:25 | Outpatient (BNVA) | payer MEDICARE, SELFPAY | PROVIDERS: PCP Family Medicine; Visit Provider Podiatrist Foot & Ankle Surgery | DX: E11.8 Type 2 diabetes mellitus with unspecified complications (principal); L60.3 Nail dystrophy; G62.9 Polyneuropathy, unspecified; L03.115 Cellulitis of right lower limb; Z79.84 Long term (current) use of oral hypoglycemic drugs; Z79.4 Long term (current) use of insulin | CPT/HCPCS: 11721; 99213 ==

== ENCOUNTER 2025-06-07 12:50 | Oncology outpatient (recurring) (ONCR) | payer MEDICARE, OTHER, SELFPAY ==
[2025-06-07 13:06] LABS: Hematocrit 37.7 % (37-53); Hemoglobin 12.60 g/dL (11.27-16.99); Mean Corpuscular HGB Conc 33.4 g/dL (30-55); Mean Corpuscular Hemoglobin 28.2 pg (27-33); Mean Corpuscular Volume 84.3 fl (82-101); Nucleated Red Blood Cells % 0 %; Platelet Count 339 10^3/cmm (157-399); Red Blood Count 4.47 10^6/uL (3.85-5.65); White Blood Count 10.48 10^3/uL (3.29-11.43)
[2025-06-07 13:31] LABS: Alanine Aminotransferase 12 U/L (0-41); Albumin Level 4.0 g/dL (3.5-5.2); Alkaline Phosphatase 86 U/L (40-130); Anion Gap 17.7 (5-19); Aspartate Amino Transferase 20 U/L (0-40); Blood Urea Nitrogen 24 mg/dL (8-23); Calcium 8.7 mg/dL (8.5-10.5); Carbon Dioxide 26 mmol/L (22-29); Chloride 98 mmol/L (98-107); Globulin 3.2 g/dL (1.3-4.6); Glucose 210 mg/dL (65-115); Osmolality Calculated 296 mOsm/kg (285-295); Potassium 3.7 mmol/L (3.5-5.1); Sodium 138 mmol/L (136-145); Total Protein 7.2 g/dL (6.6-8.7)
[2025-06-07 13:34] LABS: Prostate Specific Antigen < 0.014 ng/mL (0-4)
[2025-06-07] MEDS: leuprolide 22.5 mg Kit IM (13:53)
== END 2025-06-23 23:59 | disposition home or self-care (01) ==
PROVIDERS: PCP Family Medicine; Visit Provider Nurse Practitioner Family
DX: Z51.11 Encounter for antineoplastic chemotherapy (principal); C61 Malignant neoplasm of prostate; C79.51 Secondary malignant neoplasm of bone; R03.0 Elevated blood-pressure reading, without diagnosis of hypertension; E11.40 Type 2 diabetes mellitus with diabetic neuropathy, unspecified; Z92.3 Personal history of irradiation; Z79.899 Other long term (current) drug therapy; Z79.818 Long term (current) use of other agents affecting estrogen receptors and estrogen levels
CPT/HCPCS: 80053; 84153; 84403; 85025; 96372; 99213; J9217